=== PATIENT | female | born 1970 | race Caucasian/White ===

== ENCOUNTER 2019-12-24 15:28 | Emergency (ER) | payer OTHER, SELFPAY ==
--- NOTE | 2019-12-24 | ECG_ITS ---
Test Reason : CHEST PAIN Blood Pressure : / mmHG Vent. Rate : 060 BPM Atrial Rate : 060 BPM P-R Int : 138 ms QRS Dur : 078 ms QT Int : 428 ms P-R-T Axes : 044 -32 016 degrees QTc Int : 428 ms Normal sinus rhythm Left axis deviation Nonspecific T wave abnormality Anterolateral leads Abnormal ECG When compared with ECG of 22-FEB-2015 20:31, T wave inversion now evident in Anterolateral leads Referred By: Generic ED Physician Electronically Signed By:SHAUNNA POSADA MD
[2019-12-24 15:43] VITALS: BP 123/65; PULSE 58; RESP 20; TEMP 36.8; O2SAT 100; BMI 35.4
[2019-12-24 16:07] VITALS: BP 125/70; PULSE 60; RESP 20; TEMP 36.8; O2SAT 100
--- NOTE | 2019-12-24 16:25 | ED_ITS ---
HPI - Chest Pain General Chief Complaint: Chest Pain Stated Complaint: Chest Pain Time Seen by Provider: 12/24/19 15:59 Source: patient Mode of arrival: ambulatory Limitations: no limitations History of Present Illness HPI narrative: Patient comes in complaining of left-sided chest pain and left- sided upper back pain. 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 Patient states her chest her arm her back hurt with any slight movement. Patient denies diaphoresis, no shortness of breath. Related Data Previous Rx's Medication Instructions Recorded diazepam [Valium] 5 mg PO BID PRN #10 tab 12/24/19 ketorolac 10 mg PO TID PRN 5 Days tab 12/24/19 ketorolac 10 mg PO TID PRN 5 Days #10 tab 12/24/19 Allergies Allergy/AdvReac Type Severity Reaction Status Date / Time acetaminophen [From PERCOCET] Allergy Unknown N/V/ITCHING Unverified 10/27/19 15:25 doxycycline [DOXYCYCLINE] Allergy Unknown NAUSEA/VOMI Unverified 10/27/19 15:25 TING/ITCHIN G oxycodone [From PERCOCET] Allergy Unknown N/V/ITCHING Unverified 10/27/19 15:25 Doxycycline Hyclate AdvReac Unknown vomiting Uncoded 05/10/19 00:00 Review of Systems Review of Systems: Constitutional : No Weight loss, No Fever, No Chills, No Night Sweats, No Fatigue ENT/Mouth : No Hearing loss, No Ear Pain, No Nasal Congestion, No Sinus Pain, No Hoarseness, No sore throat, No Rhinorrhea, No Swallowing Difficulty Eyes: No Eye Pain, No Swelling, No Redness, No Foreign Body, No Discharge, No Vision Changes Cardiovascular : Left-sided chest Pain, No SOB, No Dyspnea on Exertion, No Orthopnea, No Edema, No Palpitations Respiratory : No Cough, No Sputum, No Wheezing, No Smoke Exposure, No Dyspnea Gastrointestinal : No Nausea, No Vomiting, No Diarrhea, No Constipation, No abdominal Pain, No Hematochezia, No Melena Genitourinary : no irregular bleeding, No Dysuria, No Urinary Frequency, No Hematuria, No Urinary Incontinence, No Urgency, No Flank Pain, No Urinary Flow Changes, No Hesitancy Musculoskeletal : No joint pain, patient complaining of left-sided chest pain, left arm pain radiating towards her neck, left scapular pain, No Joint Swelling Skin : No Skin Lesions, No rash Neuro : No Weakness, No Numbness, No Paresthesias, No Loss of Consciousness, No Dizziness, No Headache Psych : No Anxiety/Panic, No Depression, No SI/HI/AH/VH, No Social Issues, Heme/Lymph: No Bruising, No Bleeding,No Lymphadenopathy Endocrine : No Polyuria, No Polydipsia, No Temperature Intolerance [facility] Past Medical History Medical History Hypercholesteremia Social History Social History Alcohol intake: never Smoking Status: Current every day smoker Use of substances other than those prescribed or required for medical reasons: No Advance Directives: No Advance Directives Information Provided: No Physical Exam Vital Signs: Vital Signs: Last Vital Signs Temp 98.2 F 12/24/19 16:07 Pulse 60 12/24/19 16:07 Resp 20 12/24/19 16:07 BP 125/70 12/24/19 16:07 Pulse Ox 100 12/24/19 16:07 Body Mass Index 35.4 Appearance: Alert. Oriented X3. No acute distress. Eyes: Pupils equal, round and reactive to light. ENT: Pharynx normal. Neck: Normal inspection. Neck supple. No lymph nodes noted. No crepitus CVS: Normal heart rate and rhythm. Pulses normal. Normal S1 and S2. reproducible chest pain to palpation Respiratory: No respiratory distress. Breath sounds normal. No Wheezing. No rales Abdomen: Soft and nontender. No rigidity. No distention. good BS x4 Back: palpable muscle spasms on the upper left side and over the suprascapular area Skin: Skin warm and dry. Normal skin color. Normal skin turgor. Extremities: No lower extremity edema. No lower extremity edema. No Lacerations. No Rash, reproducible pain with left arm movement Neuro: Oriented X 3. No motor deficit. No sensory deficit. Moving all extermities. No slurred speech. Course Course Course Narrative: patient feeling better after the IM medication and Valium. patient's white blood cell count likely secondary to reactive leukocytosis. Chest x-ray within, at this time sepsis is not suspect. MDM - Chest Pain Lab Data Result diagrams: 12/24/19 16:49 12/24/19 16:49 Labs: Lab Results 12/24/19 12/24/19 12/24/19 Range/Units 16:49 16:49 16:49 WBC 15.3 H (4.8-10.8) X10*3/uL RBC 4.75 (4.20-5.50) X10*6/uL Hgb 14.9 (12.0-16.0) g/dl Hct 43.0 (37-47) % MCV 90.5 (80-98) fL MCH 31.4 (27.0-33.0) pg MCHC 34.7 (31.0-35.0) g/dl RDW 13.0 (11.0-16.0) % Plt Count 368 (160-400) X10*3/uL MPV 10.2 (9.4-12.3) fL Immature Gran % (Auto) 0.5 H (0.0-0.4) % Neut % (Auto) 70.9 (45-73) % Lymph % (Auto) 22.0 (20-40) % [place] % (Auto) 5.1 (2-11) % Eos % (Auto) 0.8 (0-4) % Baso % (Auto) 0.7 (0-2) % Lymph # (Auto) 3.4 (1.2-4.9) X10*3/uL [place] # (Auto) 0.8 (0.1-1.2) X10*3/uL Eos # (Auto) 0.1 (0.0-0.4) X10*3/uL Baso # (Auto) 0.1 (0.0-0.2) X10*3/uL Abs Immat Gran (auto) 0.07 H (0.00-0.03) X10*3/uL Absolute Neuts (auto) 10.9 H (2.0-8.3) X10*3/uL Absolute Nucleated RBC 0.000 (0.0-0.012) X10*3/uL Nucleated RBC % (auto) 0.0 (0.0-0.2) /100WBC Sodium 139 (135-145) mmol/L Potassium 3.8 (3.3-5.1) mmol/l Chloride 109 H (96-108) mmol/L Carbon Dioxide 19 L (22-29) mmol/L Anion Gap 15 (12-20) BUN 12 (9-16) mg/dL Creatinine 0.71 (0.5-1.4) mg/dL Estim Creat Clear Calc 104.7 Estimated GFR > 60 Random Glucose 86 (60-115) mg/dL Calcium 8.8 (8.4-10.2) mg/dL Troponin I High Sens < 3.5 (<3.5-17.0) ng/L Imaging Data Chest x-ray: Radiologist's impression: XR CHEST CLINICAL INFORMATION: Leukocytosis COMPARISON: Chest radiograph 02/22/2015 TECHNIQUE: Frontal view of the chest was obtained. FINDINGS: No significant abnormality is noted involving the heart, lungs, mediastinum, bony thorax or soft tissues. There is some minimal elevation of the right hemidiaphragm compared with the prior study. XR/XR chest 1V IMPRESSION: Unremarkable examination. ECG Data ECG #1: Attestation: I personally reviewed and interpreted this ECG as follows: ( sinus rhythm, heart rate 60, nonspecific T-wave inversions in leads V4 V5, QTC 428) Discharge Plan Discharge Clinical Impression: Atypical chest pain, Muscle strain of chest wall Patient Disposition: Home, Self-Care Instructions: Chest Pain (ED), Chest Wall Pain (ED) Additional Instructions: Please follow-up with your primary care physician tomorrow. If you have any worsening or new symptoms, please return to the emergency room or call 911 Prescriptions: New ketorolac 10 mg tablet 10 mg PO TID PRN (Reason: pain) 5 Days RF: 0 diazepam [Valium] 5 mg tablet 5 mg PO BID PRN (Reason: muscle spasm) Qty: 10 RF: 0 ketorolac 10 mg tablet 10 mg PO TID PRN (Reason: pain) 5 Days Qty: 10 RF: 0 Stand Alone Forms: Work/School Release
[2019-12-24] MEDS: diazePAM 5 MG TABLET PO (16:40)
[2019-12-24] MEDS: Ketorolac Tromethamine 60 MG/2 ML VIAL IM (16:41)
[2019-12-24 16:51] VITALS: PULSE 56
[2019-12-24 16:59] LABS: Basophils Absolute Auto 0.1 X10*3/uL (0.0-0.2); Basophils Percent Auto 0.7 % (0-2); Eosinophils Absolute Auto 0.1 X10*3/uL (0.0-0.4); Eosinophils Percent Auto 0.8 % (0-4); Hemoglobin 14.9 g/dl (12.0-16.0); Imm Gran Abs Auto 0.07 X10*3/uL (0.00-0.03); Imm Gran Pct Auto 0.5 % (0.0-0.4); Lymphocytes Absolute Auto 3.4 X10*3/uL (1.2-4.9); MANUAL DIFF FLAG NO; Mean Corpuscular HGB Conc 34.7 g/dl (31.0-35.0); Mean Corpuscular Hemoglobin 31.4 pg (27.0-33.0); Mean Corpuscular Volume 90.5 fL (80-98); Mean Platelet Volume 10.2 fL (9.4-12.3); Monocytes Absolute Auto 0.8 X10*3/uL (0.1-1.2); Monocytes Percent Auto 5.1 % (2-11); Neutrophils Absolute Auto 10.9 X10*3/uL (2.0-8.3); Neutrophils Percent Auto 70.9 % (45-73); Platelet Count 368 X10*3/uL (160-400); Red Blood Count 4.75 X10*6/uL (4.20-5.50); White Blood Count 15.3 X10*3/uL (4.8-10.8)
--- NOTE | 2019-12-24 17:16 | XR_ITS ---
EXAMINATION: XR CHEST CLINICAL INFORMATION: Leukocytosis COMPARISON: Chest radiograph 02/22/2015 TECHNIQUE: Frontal view of the chest was obtained. FINDINGS: No significant abnormality is noted involving the heart, lungs, mediastinum, bony thorax or soft tissues. There is some minimal elevation of the right hemidiaphragm compared with the prior study. XR/XR chest 1V IMPRESSION: Unremarkable examination.
[2019-12-24 17:20] LABS: Anion Gap 15 (12-20); Blood Urea Nitrogen 12 mg/dL (9-16); Calcium 8.8 mg/dL (8.4-10.2); Carbon Dioxide 19 mmol/L (22-29); Chloride 109 mmol/L (96-108); Creatinine Clr Calc Pharmacy 104.7; Estimated Glomerular Filt Rate > 60; Glucose Random 86 mg/dL (60-115); Potassium 3.8 mmol/l (3.3-5.1); Sodium 139 mmol/L (135-145)
[2019-12-24 17:27] LABS: Troponin-I High Sensitivity < 3.5 ng/L (<3.5-17.0)
[2019-12-24 18:00] VITALS: BP 121/71; PULSE 62; RESP 16; TEMP 36.6; O2SAT 98
== END 2019-12-24 18:19 | disposition home or self-care (01) ==
PROVIDERS: Emergency Provider Emergency Medicine; PCP Internal Medicine
DX: R07.89 Other chest pain (principal); D72.829 Elevated white blood cell count, unspecified; Z79.899 Other long term (current) drug therapy; F17.200 Nicotine dependence, unspecified, uncomplicated; Z71.6 Tobacco abuse counseling
CPT/HCPCS: 36415; 71045; 80048; 84484; 85025; 93005; 96372; 99284; J1885

== ENCOUNTER → 2020-01-04 13:07 | Outpatient (BNVA) | payer OTHER, SELFPAY | PROVIDERS: PCP Internal Medicine; Visit Provider Physician Assistant Medical | DX: S16.1XXA Strain of muscle, fascia and tendon at neck level, initial encounter (principal); S46.812A Strain of other muscles, fascia and tendons at shoulder and upper arm level, left arm, initial encounter; S46.912A Strain of unspecified muscle, fascia and tendon at shoulder and upper arm level, left arm, initial encounter; X50.0XXA Overexertion from strenuous movement or load, initial encounter; Y93.9 Activity, unspecified; Y92.129 Unspecified place in nursing home as the place of occurrence of the external cause; Y99.0 Civilian activity done for income or pay | CPT/HCPCS: 72040; 73030; 99203 ==

== ENCOUNTER → 2020-01-13 14:16 | Outpatient (BNVA) | payer OTHER, SELFPAY | PROVIDERS: PCP Internal Medicine; Visit Provider Physician Assistant Medical | DX: S16.1XXD Strain of muscle, fascia and tendon at neck level, subsequent encounter (principal); S46.812D Strain of other muscles, fascia and tendons at shoulder and upper arm level, left arm, subsequent encounter; X58.XXXD Exposure to other specified factors, subsequent encounter | CPT/HCPCS: 99213 ==

== ENCOUNTER → 2020-01-23 09:38 | Outpatient (BNVA) | payer OTHER, SELFPAY | PROVIDERS: PCP Internal Medicine; Visit Provider Physician Assistant | DX: S16.1XXD Strain of muscle, fascia and tendon at neck level, subsequent encounter (principal); X58.XXXD Exposure to other specified factors, subsequent encounter; R20.2 Paresthesia of skin | CPT/HCPCS: 99214 ==

== ENCOUNTER 2020-01-27 12:39 | Outpatient (REF) | payer OTHER, SELFPAY ==
--- NOTE | 2020-01-27 | MR_ITS ---
EXAMINATION: MR CERVICAL SPINE WITHOUT CONTRAST CLINICAL INFORMATION: Left hand weakness with shooting pain down the left thumb and cramping left thumb. Previously left shoulder pain a month ago. COMPARISON: Cervical spine 01/04/2020 TECHNIQUE: MRI of the cervical spine was obtained using routine sequences without contrast. FINDINGS: There is mild straightening of cervical lordosis from spasm. The vertebral heights and alignment are maintained normal. There is loss of C4-C5, C5-C6, C6-C7 disc levels. The C2-C3 disc level appears unremarkable. At C3-C4 disc level, there is minimal diffuse bulge without spinal canal stenosis. The neural foramina are patent. At C4-5 disc level, there is broad-based diffuse bulge indenting the ventral thecal sac and resulting in moderate AP canal stenosis and flattening of the cord. There is moderate left and mild right neural foraminal narrowing secondary to hypertrophic uncovertebral changes greater on the left. At C5-C6 disc level, there is mild diffuse bulge/osteophyte complex flattening the ventral thecal sac and resulting in mild AP canal stenosis. There is [id number] right and moderate left neural foraminal narrowing from uncovertebral hypertrophic changes. At C6-C7 disc level, there is a broad-based diffuse bulge/osteophyte complex flattening the ventral thecal sac and resulting in mild AP canal stenosis. There is moderate left and mild right neural foraminal narrowing from uncovertebral hypertrophic changes. At C7-T1 disc level, there is a diffuse bulge with a superimposed left paracentral large disc herniation extending into the proximal neural foramina. The disc herniation measures approximately 0.7 x 0.5 cm. There is moderate impingement on the exiting left T1 nerve root. The T1-T2 and T2-T3 disc levels are unremarkable. There is focal T2 signal change in right central cord posterior to C6 vertebra likely focal myelomalacia or contusion. The rest of the cord signal, craniovertebral junction and cervical-medullary junction appears normal. Modic type I endplate changes are seen at C6-C7 disc level. MR/MR cervical spine wo con IMPRESSION: Multilevel disc bulges from the C3-C4 through C4-C5 disc level with mild AP canal stenosis and bilateral neural foraminal narrowing slightly worse on the left from uncovertebral hypertrophic change at the C4-C5 disc level. Mild disc bulge/osteophyte complex C5-C6 and C6-C7 disc levels with mild AP canal stenosis. There is bilateral narrowing of neural foramina from uncovertebral hypertrophic changes slightly worse on the right at the C5-C6 disc level. Diffuse bulge with a superimposed left paracentral and lateral disc herniation at C7-T1 disc level severely compromising the proximal neural foramina and left lateral recess. There is also impingement of left T1 nerve root. Focal encephalomalacia right central cord posterior to C6 vertebra.
== END 2020-01-27 12:40 | disposition home or self-care (01) ==
LOC: HO.MRI 12:39
PROVIDERS: Visit Provider Internal Medicine
DX: R20.2 Paresthesia of skin (principal); R53.1 Weakness
CPT/HCPCS: 72141

== ENCOUNTER → 2020-02-02 13:16 | Outpatient (BNVA) | payer OTHER, SELFPAY | PROVIDERS: PCP Internal Medicine; Visit Provider Physician Assistant Medical | DX: M50.23 Other cervical disc displacement, cervicothoracic region (principal); M54.10 Radiculopathy, site unspecified; G93.89 Other specified disorders of brain | CPT/HCPCS: 99213 ==

== ENCOUNTER → 2020-02-15 10:36 | Outpatient (BNVA) | payer OTHER, SELFPAY | PROVIDERS: PCP Internal Medicine; Visit Provider Physician Assistant Medical | DX: M50.23 Other cervical disc displacement, cervicothoracic region (principal); M54.10 Radiculopathy, site unspecified | CPT/HCPCS: 99213 ==

== ENCOUNTER 2020-02-16 10:25 | Outpatient (REF) | payer OTHER, SELFPAY ==
[2020-02-16 11:16] LABS: Alanine Aminotransferase 44 U/L (0-31); Albumin Level 4.5 g/dL (3.5-5.0); Alkaline Phosphatase 87 U/L (39-117); Anion Gap 12 (12-20); Aspartate Amino Transferase 23 U/L (5-31); Bilirubin Total 0.5 mg/dL (0.0-1.0); Blood Urea Nitrogen 13 mg/dL (9-16); Calcium 8.9 mg/dL (8.4-10.2); Carbon Dioxide 28 mmol/L (22-29); Chloride 105 mmol/L (96-108); Cholesterol 307 mg/dL; Estimated Glomerular Filt Rate > 60; Glucose Fasting 117 mg/dL (60-99); HDL Cholesterol 30 mg/dL; LDL Cholesterol Calculated 218 mg/dl; Potassium 4.4 mmol/l (3.3-5.1); Sodium 141 mmol/L (135-145); Total Protein 7.5 g/dL (6.5-8.0); Triglycerides 299 mg/dL
== END 2020-02-16 10:26 | disposition home or self-care (01) ==
LOC: HO.LAB 10:25
PROVIDERS: PCP Internal Medicine; Visit Provider Internal Medicine
DX: E78.5 Hyperlipidemia, unspecified (principal)
CPT/HCPCS: 36415; 80053; 80061

== ENCOUNTER 2020-02-22 13:50 | Outpatient (REF) | payer OTHER, SELFPAY ==
--- NOTE | 2020-02-22 13:56 | MM_ITS ---
EXAMINATION: MM SCREENING DIGITAL BREAST TOMOSYNTHESIS, BILATERAL CLINICAL INFORMATION: Screening. Asymptomatic. The lifetime risk of breast cancer based on the Tyrer-Cuzick Model is 7%. COMPARISON: Mammography: 01/07/2014 (baseline) TECHNIQUE: Digital breast tomosynthesis is performed in both the craniocaudal and mediolateral oblique views along with computer-aided detection (CAD). Synthesized 2D images are generated from the tomosynthesis. FINDINGS: There are scattered areas of fibroglandular density (ACR BI-RADS breast composition Category b). There are no significant masses, abnormal calcifications, or other abnormalities. Parenchymal pattern is similar to baseline exam. Skin contours are smooth. MM/MM tomosynthesis screening BI IMPRESSION: No mammographic evidence of malignancy. ASSESSMENT: BI-RADS 1: Negative RECOMMENDATION: Routine annual mammography screening. This patient's information was entered into a reminder system with a target due date for their next mammogram.
== END 2020-02-22 13:51 | disposition home or self-care (01) ==
LOC: HO.MAMMO 13:50
PROVIDERS: PCP Internal Medicine; Visit Provider Internal Medicine
DX: Z12.31 Encounter for screening mammogram for malignant neoplasm of breast (principal)
CPT/HCPCS: 77063; 77067

== ENCOUNTER 2020-02-24 10:24 | Outpatient (REF) | payer OTHER, SELFPAY ==
[2020-02-29 15:02] LABS: HPV mRNA E6/E7 rflx Not Detected (Not Detected)
== END 2020-02-24 10:25 | disposition home or self-care (01) ==
LOC: HO.LAB 10:24
PROVIDERS: PCP Physician Assistant; Visit Provider Advanced Practice Midwife
DX: Z12.4 Encounter for screening for malignant neoplasm of cervix (principal); R23.2 Flushing; F17.200 Nicotine dependence, unspecified, uncomplicated
CPT/HCPCS: 36415; 87624; 88141; 88142

== ENCOUNTER → 2020-02-29 13:11 | Outpatient (BNVA) | payer OTHER, SELFPAY | PROVIDERS: PCP Physician Assistant; Visit Provider Physician Assistant Medical | DX: M50.13 Cervical disc disorder with radiculopathy, cervicothoracic region (principal) | CPT/HCPCS: 99213 ==

== ENCOUNTER → 2020-03-09 13:01 | Outpatient (BNVA) | payer OTHER, SELFPAY | PROVIDERS: PCP Physician Assistant; Visit Provider Physician Assistant Medical | DX: M50.13 Cervical disc disorder with radiculopathy, cervicothoracic region (principal) | CPT/HCPCS: 99213 ==

== ENCOUNTER → 2020-04-06 11:11 | Outpatient (BNVA) | payer OTHER, SELFPAY | PROVIDERS: PCP Physician Assistant; Visit Provider Physician Assistant Medical | DX: M50.13 Cervical disc disorder with radiculopathy, cervicothoracic region (principal) | CPT/HCPCS: 99213 ==

== ENCOUNTER 2020-04-10 16:00 | Outpatient (RCR) | payer OTHER, MEDICAID, SELFPAY ==
--- NOTE | 2020-02-08 17:20 | MHC.PT.RE ---
[facility] [place] Office [place] Office [place] Office [address] Rusty Garcia [address] [phone] F: [phone] F: [phone] F: [phone] F: [phone] Physical Therapy Re-evaluation Diagnosis: cervical radiculopathy Date of Surgery: N/A Date of Evaluation: 01/11/20 Treatments to Date: 8 Cancellations to Date: 1 No Shows to Date: 0 Subjective: pt reported she feels 85% better since initially injuring her neck/shoulder. pt reported she had increased soreness after last visit. Pain Score: 0 Pain Location: neck, L radicular to wrist level Objective Measures: NDI (initial eval): NDI (02/07): 1950 Cervical AROM: -Flexion: 25 -Extension: 30 -Sidebend: R 35, L 30 -Rotation: R 75, L 70 Shoulder AROM: -Flexion: 150 -Abduction: 140 -Extension: 55 -External rotation: suboccipital region -Internal rotation: T12 Cervical MRI (01/27/2020): IMPRESSION: Multilevel disc bulges from the C3-C4 through C4-C5 disc level with mild AP canal stenosis and bilateral neural foraminal narrowing slightly worse on the left from uncovertebral hypertrophic change at the C4-C5 disc level. Mild disc bulge/osteophyte complex C5-C6 and C6-C7 disc levels with mild AP canal stenosis. There is bilateral narrowing of neural foramina from uncovertebral hypertrophic changes slightly worse on the right at the C5-C6 disc level. Diffuse bulge with a superimposed left paracentral and lateral disc herniation at C7-T1 disc level severely compromising the proximal neural foramina and left lateral recess. There is also impingement of left T1 nerve root. Focal encephalomalacia right central cord posterior to C6 vertebra. Assessment: pt had follow-up w/ neurosurgeon who recommended discectomy. Educated pt using spinal model and her MRI report as to what a discectomy is using a spinal model. pt wishes to seek second opinion regarding surgical intervention as she is not sure she wishes to continue w/ surgery. pt reported no radicular symptoms w/ supine L sidebending indicating she is able to reduce the pressure on her cervical nerve root w/ this position. Updated HEP to include supine L cervical sidebending in supine to manage radicular symptoms. pt stated overall she feels 85% better since her initial injury. She does however continue to have pain/difficulty w/ reading d/t flexion, holding objects w/ L side, lifting w/ L UE, and sleeping. She finds if she holds anything heavier than a cup or her phone she tends to drop the object. She has improved in her ability to perform upper body ADLs including upper body dressing. Her cervical and shoulder ROM measurements have improved since the initial eval but are not yet WNL. 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 Short Term Goals: pt will be I w/ HEP to promote self-management of condition. - GOAL MET pt will improve R cervical rotation by 15 deg to promote ease in turning head while driving. - GOAL MET EST 02/07 pt will improve L shoulder functional ER by 5 levels to promote ease in washing her hair. Equity Research Analyst Goals: pt will report statistically significant improvement in self-reported outcome measure, NDI, to promote return to PLOF. - improved by 3+ point difference pt will perform patient transfer w/ <2/10 L neck and arm pain to promote return to work. -unable to transfer pt at this time Frequency and Duration: The patient will be seen 2x/wk for 5 wks Treatment Plan: Therapeutic Exercise Dynamic Therapeutic Activities Neuromuscular Re-ed Manual Therapies Joint Mobilization Taping Home Exercise Program Patient Education Electrical Stimulation Iontophoresis Mechanical Traction Hot or Cold Pack Reviewed/ Agreed with Student Documentation: Therapist: Electronically signed by: Lucy Cotton PT, DPT Please sign and return to therapist. Thank you for your referral.
--- NOTE | 2020-04-18 15:10 | MHC.PT.DC ---
[facility] [place] Office [place] Office [place] Office [address] Rusty Garcia 140 [facility] [phone] F: [phone] F: [phone] F: [phone] F: [phone] Physical Therapy Discharge Report Diagnosis: cervical radiculopathy Date of Surgery: N/A Date of Evaluation: 01/11/20 Date of Discharge: 04/18/20 Treatments to Date: 17 Cancellations to Date: 4 No Shows to Date: 2 Discharge Status: Patient Elected to Stop Discharge Summary: The patient was making steady gains regarding her pain severity, pain frequency, and ability to tolerate a strengthening program. She was lifting up to 30 pounds while in physical therapy. 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 She has had two neurosurgical consults and each surgeon told her they would not expect her to return to full duty without receiving some surgical intervention for her neck. At her last visit she informed us that she will be pursuing surgical management. She is being discharged at this time to a home exercise program to continue to build upper extremity strength and work on her postural alignment. Electronically signed by: Lucy Cotton PT, DPT Please sign and return to therapist. Thank you for your referral.
== END 2020-04-18 15:10 | disposition other institution (70) ==
LOC: HO.PT 16:00
PROVIDERS: PCP Internal Medicine; Visit Provider Physician Assistant
DX: M54.2 Cervicalgia (principal); M62.838 Other muscle spasm
CPT/HCPCS: 97012; 97014; 97110; 97140; 97161; 97164

== ENCOUNTER → 2020-06-25 09:05 | Outpatient (REF) | payer SELFPAY | LOC: HO.SL 09:05 | PROVIDERS: PCP Internal Medicine; Visit Provider Internal Medicine | DX: R40.0 Somnolence (principal) | CPT/HCPCS: 95806 ==

== ENCOUNTER 2020-07-12 10:00 | Outpatient (RCR) | payer OTHER, SELFPAY | END 2020-07-24 11:13 | disposition other institution (70) | LOC: HO.PT 10:00 | PROVIDERS: PCP Internal Medicine; Visit Provider Specialist | DX: M54.2 Cervicalgia (principal); Z91.81 History of falling; Z98.890 Other specified postprocedural states | CPT/HCPCS: 97110; 97161 ==

== ENCOUNTER → 2020-11-07 13:00 | Outpatient (BNVA) | payer OTHER, SELFPAY | PROVIDERS: Visit Provider Physician Assistant Medical | DX: Z02.79 Encounter for issue of other medical certificate (principal) | CPT/HCPCS: 99213 ==

== ENCOUNTER → 2020-11-12 09:40 | Outpatient (BNVA) | payer OTHER, SELFPAY | PROVIDERS: Visit Provider Physician Assistant Medical | DX: Z98.1 Arthrodesis status (principal) | CPT/HCPCS: 99213 ==

== ENCOUNTER → 2020-11-13 10:12 | Outpatient (BNVA) | payer OTHER, SELFPAY | PROVIDERS: Visit Provider Physician Assistant Medical | DX: Z98.1 Arthrodesis status (principal) | CPT/HCPCS: 99213 ==

== ENCOUNTER 2022-06-13 09:56 | Outpatient (REF) | payer OTHER, SELFPAY | END 2022-06-13 09:57 | disposition home or self-care (01) | LOC: HO.LNP 09:56 | PROVIDERS: PCP Internal Medicine; Visit Provider Advanced Practice Midwife | DX: Z30.432 Encounter for removal of intrauterine contraceptive device (principal); R23.2 Flushing | CPT/HCPCS: 58301 ==

== ENCOUNTER 2022-06-13 10:32 | Outpatient (REF) | payer OTHER, SELFPAY ==
[2022-06-14 14:19] LABS: BV Int Neg Control Negative (Negative); BV Int Pos Control Positive (Positive)
[2022-06-14 19:18] LABS: Follicle Stimulating Hormone 38.4 mIU/mL
== END 2022-06-13 10:33 | disposition home or self-care (01) ==
LOC: HO.LAB 10:32
PROVIDERS: PCP Internal Medicine; Visit Provider Advanced Practice Midwife
DX: R23.2 Flushing (principal); N89.8 Other specified noninflammatory disorders of vagina
CPT/HCPCS: 36415; 83001; 87480; 87510; 87660

== ENCOUNTER → 2022-06-25 07:36 | Outpatient (BNVA) | payer OTHER, SELFPAY | PROVIDERS: PCP Internal Medicine; Visit Provider Advanced Practice Midwife ==

== ENCOUNTER 2022-07-17 13:58 | Outpatient (REF) | payer OTHER, SELFPAY ==
[2022-07-18 10:27] LABS: CT PCR NOT DETECTED (Not Detect.); NG PCR NOT DETECTED (Not Detect.)
== END 2022-07-17 13:59 | disposition home or self-care (01) ==
LOC: HO.LNP 13:58
PROVIDERS: PCP Internal Medicine; Visit Provider Advanced Practice Midwife
DX: Z01.419 Encounter for gynecological examination (general) (routine) without abnormal findings (principal); Z20.2 Contact with and (suspected) exposure to infections with a predominantly sexual mode of transmission
CPT/HCPCS: 0353U

== ENCOUNTER 2022-07-22 15:53 | Outpatient (REF) | payer OTHER, SELFPAY ==
--- NOTE | ~2022-07-22 | MM_ITS ---
EXAMINATION: MM SCREENING DIGITAL BREAST TOMOSYNTHESIS, BILATERAL CLINICAL INFORMATION: Screening. Asymptomatic. The lifetime risk of breast cancer based on the Tyrer-Cuzick Model is 7%. COMPARISON: Mammography: 02/22/2020, 01/07/2014 (baseline) TECHNIQUE: Digital breast tomosynthesis is performed in both the craniocaudal and mediolateral oblique views along with computer-aided detection (CAD). Synthesized 2D images are generated from the tomosynthesis. FINDINGS: There are scattered areas of fibroglandular density (ACR BI-RADS breast composition Category b). Breast tissue composition borders on heterogeneously dense. Parenchymal pattern is similar to prior exams. There are no significant masses, abnormal calcifications, or other abnormalities. No developing density or architectural abnormality. The axilla and skin contours are unremarkable. MM/MM tomosynthesis screening BI IMPRESSION: No mammographic evidence of malignancy. ASSESSMENT: BI-RADS 1: Negative RECOMMENDATION: Routine annual mammography screening. This patient's information was entered into a reminder system with a target due date for their next mammogram.
== END 2022-07-22 15:54 | disposition home or self-care (01) ==
LOC: HO.MAMMO 15:53
PROVIDERS: PCP Internal Medicine; Visit Provider Advanced Practice Midwife
DX: Z12.31 Encounter for screening mammogram for malignant neoplasm of breast (principal)
CPT/HCPCS: 77063; 77067

== ENCOUNTER 2022-07-31 09:17 | Outpatient (REF) | payer OTHER, SELFPAY ==
[2022-07-31 10:13] LABS: MANUAL DIFF FLAG NO
[2022-07-31 11:05] LABS: Basophils Absolute Auto 0.1 X10*3/uL (0.0-0.2); Basophils Percent Auto 1.2 % (0-2); Eosinophils Absolute Auto 0.3 X10*3/uL (0.0-0.4); Eosinophils Percent Auto 2.1 % (0-4); Hematocrit 45.1 % (37.0-47.0); Hemoglobin 15.3 g/dl (12.0-16.0); Imm Gran Abs Auto 0.07 X10*3/uL (0.00-0.03); Imm Gran Pct Auto 0.6 % (0.0-0.4); Lymphocytes Absolute Auto 3.3 X10*3/uL (1.2-4.9); Lymphocytes Percent Auto 27.9 % (20-40); Mean Corpuscular HGB Conc 33.9 g/dl (31.0-35.0); Mean Corpuscular Hemoglobin 31.2 pg (27.0-33.0); Mean Corpuscular Volume 91.9 fL (80.0-98.0); Mean Platelet Volume 11.5 fL (9.4-12.3); Monocytes Absolute Auto 0.7 X10*3/uL (0.1-1.2); Monocytes Percent Auto 5.9 % (2-11); Neutrophils Absolute Auto 7.4 x10*3/uL (2.0-8.3); Neutrophils Percent Auto 62.3 % (45-73); Platelet Count 264 X10*3/uL (160-400); Red Blood Count 4.91 X10*6/uL (4.20-5.50); Red Cell Distribution Width 13.4 % (11.0-16.0); White Blood Count 11.9 X10*3/uL (4.8-10.8)
[2022-07-31 11:13] LABS: Estimated Average Glucose 108 mg/dL; Hemoglobin A1c % 5.4 %
[2022-07-31 12:36] LABS: TSH reflex Free T4 1.22 uIU/mL (0.32-4.0)
[2022-07-31 12:42] LABS: Anion Gap 9 (12-20); Folate 12.5 ng/mL (> or = 4.0); Vitamin B12 639 pg/mL (200-900)
[2022-07-31 12:47] LABS: Alanine Aminotransferase 42 U/L (0-31); Albumin Level 4.4 g/dL (3.5-5.0); Alkaline Phosphatase 89 U/L (39-117); Aspartate Amino Transferase 22 U/L (5-31); Bilirubin Total 0.5 mg/dL (0.0-1.0); Blood Urea Nitrogen 12 mg/dL (9-16); Calcium 9.1 mg/dL (8.4-10.2); Carbon Dioxide 26 mmol/L (22-29); Chloride 110 mmol/L (96-108); Cholesterol 312 mg/dL; Estimated Glomerular Filt Rate > 60; Glucose Random 100 mg/dL (60-115); HDL Cholesterol 31 mg/dL; Potassium 4.1 mmol/L (3.3-5.1); Sodium 141 mmol/L (135-145); Total Protein 7.8 g/dL (6.5-8.0); Triglycerides 470 mg/dL
== END 2022-07-31 09:18 | disposition home or self-care (01) ==
LOC: HO.LAB 09:17
PROVIDERS: Absent Provider Nurse Practitioner Family; PCP Internal Medicine; Visit Provider Advanced Practice Midwife
DX: E78.00 Pure hypercholesterolemia, unspecified (principal); E66.9 Obesity, unspecified; Z30.430 Encounter for insertion of intrauterine contraceptive device; Z68.36 Body mass index [BMI] 36.0-36.9, adult; Z32.02 Encounter for pregnancy test, result negative; Z13.1 Encounter for screening for diabetes mellitus
CPT/HCPCS: 36415; 58300; 80053; 80061; 81025; 82306; 82607; 82746; 83036; 84443; 85025; J7298

== ENCOUNTER 2022-09-11 13:21 | Outpatient (AMB) | payer OTHER, SELFPAY ==
--- NOTE | 2022-09-11 13:22 | A.OFFVIS_ITS ---
Intake Vital Signs 09/11/22 13:23 Height 5 ft 3 in Weight 206 lb BMI 36.5 BP 100/62 Intake Visit Reasons: 4-6 weeks follow up Intake Note: The patient agreed to use of a certified medical assistant during this encounter. Scribed for IAN Saul by Sue Lopez certified medical assistant, on 09/11/2022 at 1:49 pm EST. Preparation Plant Repairer: Preparation Plant Repairer Present (Rose) Allergies doxycycline [DOXYCYCLINE] Allergy (Intermediate, Verified 09/11/22 14:18) NAUSEA/VOMITING/ITCHING Is last menstrual period known: Yes Last menstrual period: 09/01/22 Post menopausal: No Patient : No HPI HPI Comments History of Present Illness Details She is presenting for IUD check. She had the Mirena IUD placed on 07/31/22. She has no concerns. She denies pain, abnormal discharge, or other concerns. [facility] Medical History Daytime sleepiness Depression Dyslipidemia Hypercholesteremia Morbid obesity Shoulder pain, left Surgical History History of section History of neck surgery Family History Father EtOH dependence Cirrhosis Hypertension Substance use disorder Mother CKD (chronic kidney disease) Diabetes Hypertension Son In good health Brother In good health Social History Housing: House Alcohol intake: current Alcohol intake frequency: holidays/special occasions only Alcohol type: beer, wine and hard liquor Patient Tobacco Use Status: Current everyday Tobacco user Tobacco use type: Cigarette Cigarettes Per Day: 10 e-Cigarette/Vaping Use: Never Used Second Hand Smoke Exposure: No service: No Current occupational status: employed Current occupational exposures/hazards: No Sexual orientation: Straight/Heterosexual Gender identity: Female Cognitive needs: No Hearing needs: No Vision needs: No Female Reproductive History Menstrual Age of Menarche: 16 Date of last menstrual period: 09/01/22 control method: progestin IUCD (Mirena 07/31/22. IUD strings visible 09/11/22) Physical Exam Vital Signs: Last Vital Signs BP 100/62 09/11/22 13:23 BMI result Body Mass Index 36.5 Const General: cooperative, healthy appearing, comfortable, no acute distress, well developed, alert and awake Other: General: Yes bladder normal to palpation External Female Exam: normal external appearance and normal appearance of the urethra Speculum Exam - Vagina: normal appearance of the vagina, normal palpation and normal vaginal discharge Speculum Exam - Cervix: normal appearance of the cervix, normal palpation and Other cervical findings present (IUD strings visible, no tip palpable) Bimanual exam- vagina & uterus: normal bimanual exam, normal palpation, bladder normal to palpation and normal palpation Bimanual Exam- Adnexa, other: normal adnexae and no masses Assessment & Plan Assessment & Plan (1) IUD surveillance: Code(s): Z30.431 - Encounter for routine checking of intrauterine contraceptive device Plan: Discussed: Bleeding tends to taper down, some women do not bleed at all for months, some have unscheduled and random bleeding. Monitor bleeding and cramps for the next 1-2 months and contact office with any concerns or questions. All of her questions and concerns were addressed to the best of my ability and shared decision making. RTO for AG or PRN. Quality Reporting (2019) Adult ([facility] ) Smoking risk assessment performed?: Yes Patient Tobacco Use Status: Current everyday Tobacco user Coding Level of Care Code Est Pt Level 2 (60282) Diagnoses IUD surveillance Z30.431
[2022-09-11 13:23] VITALS: BP 100/62; BMI 36.5
== END 2022-09-11 14:16 | disposition home or self-care (01) ==
LOC: HO.HWS 13:21
PROVIDERS: PCP Internal Medicine; Visit Provider Advanced Practice Midwife
DX: Z30.431 Encounter for routine checking of intrauterine contraceptive device (principal)
CPT/HCPCS: 99212

== ENCOUNTER 2022-09-11 13:21 | Outpatient (REF) | payer OTHER, SELFPAY ==
[2022-09-11 14:08] LABS: MANUAL DIFF FLAG NO
[2022-09-11 15:08] LABS: Basophils Absolute Auto 0.1 X10*3/uL (0.0-0.2); Basophils Percent Auto 0.9 % (0-2); Eosinophils Absolute Auto 0.2 X10*3/uL (0.0-0.4); Eosinophils Percent Auto 1.7 % (0-4); Hematocrit 48.1 % (37.0-47.0); Hemoglobin 15.8 g/dl (12.0-16.0); Imm Gran Abs Auto 0.08 X10*3/uL (0.00-0.03); Imm Gran Pct Auto 0.6 % (0.0-0.4); Lymphocytes Absolute Auto 4.5 X10*3/uL (1.2-4.9); Lymphocytes Percent Auto 33.1 % (20-40); Mean Corpuscular HGB Conc 32.8 g/dl (31.0-35.0); Mean Corpuscular Volume 94.5 fL (80.0-98.0); Monocytes Absolute Auto 0.9 X10*3/uL (0.1-1.2); Monocytes Percent Auto 6.6 % (2-11); Neutrophils Absolute Auto 7.8 x10*3/uL (2.0-8.3); Neutrophils Percent Auto 57.1 % (45-73); Platelet Count 364 X10*3/uL (160-400); Red Blood Count 5.09 X10*6/uL (4.20-5.50); Red Cell Distribution Width 13.1 % (11.0-16.0); White Blood Count 13.7 X10*3/uL (4.8-10.8)
[2022-09-11 15:44] LABS: Alanine Aminotransferase 36 U/L (0-31); Albumin Level 4.5 g/dL (3.5-5.0); Alkaline Phosphatase 79 U/L (39-117); Aspartate Amino Transferase 21 U/L (5-31); Bilirubin Direct 0.1 mg/dL (0.0-0.5); Bilirubin Total 0.4 mg/dL (0.0-1.0); Total Protein 7.7 g/dL (6.5-8.0)
[2022-09-11 16:01] LABS: Vitamin D 25-OH Total 26.2 ng/mL (>30)
== END 2022-09-11 13:22 | disposition home or self-care (01) ==
LOC: HO.LAB 13:21
PROVIDERS: PCP Internal Medicine; Visit Provider Nurse Practitioner Family
DX: E55.9 Vitamin D deficiency, unspecified (principal); D72.829 Elevated white blood cell count, unspecified; R74.01 Elevation of levels of liver transaminase levels; K21.9 Gastro-esophageal reflux disease without esophagitis
CPT/HCPCS: 36415; 80076; 82306; 85025

== ENCOUNTER → 2022-09-11 14:13 | Outpatient (AMB) | payer OTHER, SELFPAY ==
[2022-09-11 14:17] VITALS: BMI 36.2
--- NOTE | 2022-09-11 14:17 | MHC.OFFVIS ---
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 Accompanied by: Self / Same As Patient Allergies doxycycline [DOXYCYCLINE] Allergy (Intermediate, Verified 09/11/22 14:18) NAUSEA/VOMITING/ITCHING Medication List - Last Reconciled 09/11/22 by Janine Onofre PA-C cholecalciferol (vitamin D3) 50 mcg PO DAILY levonorgestrel (Mirena) intrauterine HPI HPI Comments History of Present Illness Details A 51 y/o female referred for index screening-colonoscopy Hed constipation- with zoloft- so discontinued-she will notify PCP She has heartburn for several years- she had been taking OTC- No family history GI cancers Father had cirrhosis, alcohol use No nausea, vomiting, hematemesis, hematochezia fever chills PFSH Medical History Daytime sleepiness Depression Dyslipidemia Hypercholesteremia Morbid obesity Shoulder pain, left Surgical History History of section History of neck surgery Family History Father EtOH dependence Cirrhosis Hypertension Substance use disorder Mother CKD (chronic kidney disease) Diabetes Hypertension Son In good health Brother In good health Social History Housing: House Alcohol intake: current Alcohol intake frequency: holidays/special occasions only Alcohol type: beer, wine and hard liquor Patient Tobacco Use Status: Current everyday Tobacco user Tobacco use type: Cigarette Cigarettes Per Day: 10 e-Cigarette/Vaping Use: Never Used Second Hand Smoke Exposure: No service: No Current occupational status: employed Current occupational exposures/hazards: No Sexual orientation: Straight/Heterosexual Gender identity: Female Cognitive needs: No Hearing needs: No Vision needs: No Female Reproductive History Menstrual Age of Menarche: 16 Review of Systems Const All systems reviewed & are unremarkable except as noted in HPI and below Card Denies chest pain and Denies dyspnea Resp Denies dyspnea GI Denies abdominal pain, Denies change in bowel habits and Denies heartburn Physical Exam Vital Signs: BMI result Body Mass Index 36.2 Const General: cooperative, healthy appearing, comfortable and no acute distress Orientation/consciousness: patient oriented x3 Limitations: no limitations Resp Effort & Inspection: normal respiratory effort and able to speak in complete sentences Auscultation: clear to auscultation bilaterally and no wheezes Cardio Rate: regular rate Rhythm: regular rhythm Heart sounds: S1 normal heart sound present and S2 normal heart sound present GI Palpation (GI): Soft to palpation and nontender Skin General skin exam: no rashes or lesions noted Neuro General: patient oriented x3 Extrem General: Yes full ROM Psych Appearance: grossly normal and well kempt Mental Status: mental status grossly normal Speech and movement: Normal speech and movement present Affect: normal affect Attitude: cooperative Thought process: Normal thought process present Thought content: Normal thought content present Insight: Good insight present (Psych) Judgement: Good judgement present (Psych) Results Reviewed Results Reviewed: Reviewd labs as far back as 2019- very elevated lipid panel Assessment & Plan Assessment & Plan (1) Encounter for screening colonoscopy: Code(s): Z12.11 - Encounter for screening for malignant neoplasm of colon (2) Acid reflux: Comment: Reflux precautions reviewed PPI, q.d. consistent EGD- r/o pud, nonulcer dyspepsia, esophagitis other endoscopic findings to account for her symptoms Code(s): K21.9 - Gastro-esophageal reflux disease without esophagitis Plan REENFORCED importance- of F/U with PCP for cholesterol / triglycerides- EGD/ colon-MG Discuss indications/procedure, rare risks Orders: Orders Colonoscopy - GI Use Only 09/11/22 Z12.11 - Encounter for screening for malignant neoplasm of colon EDG - GI Use Only 09/11/22 K21.9 - Gastro-esophageal reflux disease without esophagitis Medications: New bisacodyl (Dulcolax (bisacodyl)) Take 4 tablets by mouth at 12:00pm the day before your procedure. 20 mg (4 x 5 mg) PO ONCE 1 day 4 tabs 0RF colonoscopy prep Z12.11 - Encounter for screening for malignant neoplasm of colon polyethylene glycol 3350 (Miralax) Take as directed by mouth the day before your procedure. 238 grams PO ONCE 1 day PRN 238 grams 0RF laxative effect pantoprazole 40 mg (2 x 20 mg) PO ONCE 30 days 60 tabs 6RF Patient Instructions: 51-year-old female referred for index screening colonoscopy-persistent acid reflux Reviewed blood work elevated cholesterol/triglycerides she will follow back with her PCP Reflux precautions reviewed PPI, q.d. consistent EGD/ colonoscopy- Needs escorted due to anesthesia Encouraged to call questions or concerns Quality Reporting (2019) Adult ([facility] 138/04/02/68) Smoking risk assessment performed?: Yes Patient Tobacco Use Status: Current everyday Tobacco user Coding Level of Care Code New Pt Level 3 (14432) Diagnoses Encounter for screening colonoscopy Z12.11 Acid reflux K21.9 Time Spent (min) 30
== END ==
PROVIDERS: PCP Internal Medicine; Visit Provider Physician Assistant
DX: Z01.818 Encounter for other preprocedural examination (principal); Z12.11 Encounter for screening for malignant neoplasm of colon; K21.9 Gastro-esophageal reflux disease without esophagitis
CPT/HCPCS: 99203

== ENCOUNTER 2022-09-17 17:14 | Outpatient (AMB) | payer OTHER, SELFPAY ==
[2022-09-17 17:24] VITALS: BP 130/72; PULSE 82; O2SAT 98; BMI 36.7
--- NOTE | 2022-09-17 17:24 | MHC.PC.OV ---
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 Accompanied by: Self / Same As Patient Allergies doxycycline [DOXYCYCLINE] Allergy (Intermediate, Verified 09/17/22 17:39) NAUSEA/VOMITING/ITCHING sertraline Adverse Reaction (Intermediate, Verified 09/17/22 17:39) cramps Medication List - Last Reconciled 09/17/22 by Laila Aponte MD bisacodyl (Dulcolax (bisacodyl)) 20 mg (4 x 5 mg) PO ONCE 1 day cholecalciferol (vitamin D3) 50 mcg PO DAILY levonorgestrel (Mirena) intrauterine pantoprazole 40 mg (2 x 20 mg) PO ONCE 30 days polyethylene glycol 3350 (Miralax) 238 grams PO ONCE PRN 1 day Tobacco use date assessed: 07/08/22 Dental Screening Dental Screen Date: 09/17/22 Did you have a dental visit in the last 12 months?: Yes Did you have a dental problem in the last 6 months where you did not have access to dental care?: No Was dental information given to patient?: Patient has dentist HPI HPI Comments History of Present Illness Details This is a 51-year-old female with acid reflux, anxiety, mixed hyperlipidemia and leukocytosis that comes today complaining of more anxiety with sertraline. She would like to go back to citalopram. She was in citalopram 40 mg and I will start her on 10 mg. Acid reflux stable with pantoprazole. Cholesterol and triglycerides are elevated and her [place] risk score of having a heart attack or stroke in the next 10 years is 13.8%. I will start her on statins and fibrates. She has chronic leukocytosis for about 3 years. Denies any fever or night sweats. Has a brother with mantle cell lymphoma. Will be referred to Hematology-Oncology. Had a urinalysis today that was negative for infection. COUNT INCLUDES THE [facility] Medical History Daytime sleepiness Depression Dyslipidemia Hypercholesteremia Morbid obesity Shoulder pain, left Surgical History History of section History of neck surgery Family History (Updated 09/17/22 @ 18:45 by Laila Aponte MD) Father EtOH dependence Cirrhosis Hypertension Substance use disorder Mother CKD (chronic kidney disease) Diabetes Hypertension Son In good health Brother Mantle cell lymphoma, Onset Age: 54 Social History Housing: House Alcohol intake: current Alcohol intake frequency: holidays/special occasions only Alcohol type: beer, wine and hard liquor Patient Tobacco Use Status: Current everyday Tobacco user Tobacco use type: Cigarette Cigarettes Per Day: 10 e-Cigarette/Vaping Use: Never Used Second Hand Smoke Exposure: No service: No Current occupational status: employed Current occupational exposures/hazards: No Sexual orientation: Straight/Heterosexual Gender identity: Female Cognitive needs: No Hearing needs: No Vision needs: No Female Reproductive History Menstrual Age of Menarche: 16 Questionnaire PHQ-9 Over the last 2 weeks, how often have you been bothered by any of the following problems? 1. Little interest or pleasure in doing things: more than half the days 2. Feeling down, depressed, or hopeless: more than half the days 3. Trouble falling or staying asleep, or sleeping too much: not at all 4. Feeling tired or having little energy: nearly every day 5. Poor appetite or overeating: more than half the days 6. Feeling bad about yourself - or that you are a failure or have let yourself or your family down: several days 7. Trouble concentrating on things, such as reading the newspaper or watching television: several days 8. Moving or speaking so slowly that other people could have noticed. Or the opposite - being so fidgety or restless that you have been moving around a lot more than usual: not at all 9. Thoughts that you would be better off or of hurting yourself in some way: not at all Total score: 11 Depression Screening Interpretation: Positive Depression Screening Follow-up: Existing condition and In treatment 55333 - PHQ-9 Billing: Yes Source: Developed by Drs. Jacky Melgoza, Rachel Guardado, Gabriel Rossi and colleagues, with an educational margarita from [employer]. Thrive Questionnaire Date Thrive assessed: 07/08/22 AUDIT C Alcohol Use Questionnaire (AUDIT-C) 1. How often do you have a drink containing alcohol?: Monthly or less 2. How many drinks containing alcohol do you have on a typical day when you are drinking?: 1 or 2 3. How often do you have six or more drinks on one occasion?: Never Total Score: 1 Score Reviewed/Action Taken: No KAYLA-7 AMB Questionnaire KAYLA-7 Date KAYLA - 7 assessed: 07/08/22 Source: Developed by Drs. Jacky Melgoza, Rachel Guardado, Gabriel Rossi and colleagues, with an educational margarita from [employer]. Review of Systems Const All systems reviewed & are unremarkable except as noted in HPI and below Eyes Reports no additional complaints, Denies change in vision and Denies other visual disturbances Card Denies chest pain at rest, Denies chest pain with activity, Denies edema, Denies irregular heart rhythm, Denies claudication, Denies dyspnea, Denies dyspnea on exertion, Denies orthopnea, Denies paroxysmal nocturnal dyspnea and Denies slow heart rate Resp Denies cough, Denies dyspnea and Denies dyspnea on exertion GI Denies abdominal pain, Denies change in bowel habits, Denies excessive flatus, Denies nausea and Denies vomiting Denies urinary incontinence, Denies urinary hesitancy and Denies urinary urgency Musc Denies abnormal gait, Denies atrophy, Denies deformity and Denies limited range of motion Skin/Breast Denies bleeding lesions, Denies changing lesions and Denies rash Neuro Denies abnormal gait and Denies lack of coordination Psych Reports anxiety Physical exam (Primary Care) Vital Signs: Last Vital Signs Pulse 82 09/17/22 17:24 BP 130/72 09/17/22 17:24 Pulse Ox 98 09/17/22 17:24 Oxygen Delivery Method Room Air 09/17/22 17:24 BMI result Body Mass Index 36.7 Tobacco/Smoking Status: Tobacco use Status Tobacco use date assessed 07/08/22 09/17/22 17:30 Patient Tobacco Use Status Current everyday Tobacco 09/17/22 17:30 Tobacco use type Cigarette 09/17/22 17:30 e-Cigarette/Vaping Use Never Used 09/17/22 17:30 PHQ-9: PHQ-9 Score PHQ-9: Total score 11 09/17/22 17:56 Depression Screening Interpretation: Positive Depression Screening Follow-up: Existing condition and In treatment Thrive Assessment: Date of Thrive Assessment Date Thrive assessed 07/08/22 09/17/22 17:30 Eyes General: appearance normal, both eyes and all related structures Eyelids: Yes eyelids normal Conjunctivae: conjunctivae normal Neck Neck: Yes normal visual inspection and Yes supple Resp Effort & Inspection: normal respiratory effort Auscultation: clear to auscultation bilaterally Cardio Jugular venous distension: no JVD Rate: regular rate Rhythm: regular rhythm Heart sounds: S1 normal heart sound present and S2 normal heart sound present Extrem General: Yes full ROM Results AMB Urinalysis, Automated UA Leukoctes 0 Pankaj/uL Last Edit by Flaca Rubin CMA on 09/17/22 17:57 UA Nitrite Negative Last Edit by Flaca Rubin CMA on 09/17/22 17:57 UA Urobilinogen 0.2 mg/dL Last Edit by Flaca Rubin CMA on 09/17/22 17:57 UA Protein 0 mg/dL Last Edit by Flaca Rubin CMA on 09/17/22 17:57 UA pH 6.0 Last Edit by Flaca Rubin CMA on 09/17/22 17:57 UA Blood 0 Omega/uL Last Edit by Flaca Rubin CMA on 09/17/22 17:57 UA Specific [place] 1.030 Last Edit by Flaca Rubin CMA on 09/17/22 17:57 UA Ketone Negative Last Edit by Flaca Rubin CMA on 09/17/22 17:57 UA Bilirubin 0 mg/dL Last Edit by Flaca Rubin HOROLOGIST APPRENTICE on 09/17/22 17:57 UA Glucose 0 mg/dL Last Edit by Flaca Rubin CMA on 09/17/22 17:57 Results Reviewed Results Reviewed: Laboratory Last Values Urine pH (Auto) 6.0 09/17/22 17:56 Specific [place] (Auto) 1.030 09/17/22 17:56 Urine Protein (Auto) 0 mg/dL 09/17/22 17:56 Glucose (UA)(Auto) 0 mg/dL 09/17/22 17:56 Urine Ketones (Auto) Negative 09/17/22 17:56 Urine Blood (Auto) 0 Omega/uL 09/17/22 17:56 Urine Nitrite (Auto) Negative 09/17/22 17:56 Urine Bilirubin (Auto) 0 mg/dL 09/17/22 17:56 Urine Urobilinogen (Auto) 0.2 mg/dL 09/17/22 17:56 Leukocyte Esterase (Auto) 0 Pankaj/uL 09/17/22 17:56 Assessment and Plan Assessment & Plan (1) KAYLA (generalized anxiety disorder): Code(s): F41.1 - Generalized anxiety disorder Plan: Restart citalopram. (2) Mixed hyperlipidemia: Code(s): E78.2 - Mixed hyperlipidemia Plan: Start statins and fibrates. (3) Elevated white blood cell count: Code(s): D72.829 - Elevated white blood cell count, unspecified Plan: Referred to Hematology-Oncology. (4) Acid reflux: Comment: Reflux precautions reviewed PPI, q.d. consistent EGD- r/o pud, nonulcer dyspepsia, esophagitis other endoscopic findings to account for her symptoms Code(s): K21.9 - Gastro-esophageal reflux disease without esophagitis Plan: Continue pantoprazole. Orders: Orders Lipid Panel 6 Months E78.5 - Hyperlipidemia, unspecified Comprehensive [place]. Panel Fast 6 Months E78.5 - Hyperlipidemia, unspecified RT home sleep study 07/08/22 R40.0 - Somnolence AMB Urinalysis Automated Today Z13.9 - Encounter for screening, unspecified Referrals Hematology & Oncology Referral D72.829 - Elevated white blood cell count, unspecified Medications: New citalopram 10 mg PO DAILY 30 days 30 tabs 0RF F41.1 - Generalized anxiety disorder atorvastatin 20 mg PO BEDTIME 90 days 90 tabs 1RF fenofibrate 54 mg PO DAILY 90 days 90 tabs 1RF E78.2 - Mixed hyperlipidemia Coding Level of Care Code Est Pt Level 4 (59852) Diagnoses KAYLA (generalized anxiety disorder) F41.1 Mixed hyperlipidemia E78.2 Elevated white blood cell count D72.829 Acid reflux K21.9 Time Spent (min) 23
== END 2022-09-17 18:02 | disposition home or self-care (01) ==
PROVIDERS: PCP Internal Medicine; Visit Provider Internal Medicine
DX: F41.1 Generalized anxiety disorder (principal); E78.2 Mixed hyperlipidemia; D72.829 Elevated white blood cell count, unspecified; K21.9 Gastro-esophageal reflux disease without esophagitis
CPT/HCPCS: 81003; 99214

== ENCOUNTER → 2022-10-03 11:21 | Outpatient (BNV) | payer OTHER, SELFPAY | PROVIDERS: PCP Internal Medicine; Visit Provider Internal Medicine | DX: D72.829 Elevated white blood cell count, unspecified (principal) | CPT/HCPCS: 99204; 99213 ==

== ENCOUNTER 2023-03-19 16:30 | Outpatient (AMB) | payer OTHER, SELFPAY ==
--- NOTE | 2023-03-19 16:42 | MHC.PC.OV ---
Vital Signs 03/19/23 16:43 Height 5 ft 3 in Weight 210 lb BMI 37.2 BP 120/72 Blood Pressure Location Lt brachial Position Sitting Intake Visit Reasons: lipids Intake Note: Patient here for a follow up Lipids Narcotics Agent Required: No Accompanied by: Self / Same As Patient Allergies doxycycline [DOXYCYCLINE] Allergy (Intermediate, Verified 03/19/23 16:51) NAUSEA/VOMITING/ITCHING sertraline Adverse Reaction (Intermediate, Verified 03/19/23 16:51) Constipation Medication List - Last Reconciled 03/19/23 by Laila Aponte MD atorvastatin 20 mg PO BEDTIME 90 days cholecalciferol (vitamin D3) (Vitamin D3) 50 mcg PO DAILY citalopram 10 mg PO DAILY 30 days fenofibrate 54 mg PO DAILY 90 days levonorgestrel (Mirena) 52 mcg intrauterine USEASDIRECTD pantoprazole 40 mg (2 x 20 mg) PO DAILY Tobacco use date assessed: 03/19/23 Dental Screening Dental Screen Date: 03/19/23 Did you have a dental visit in the last 12 months?: Yes Did you have a dental problem in the last 6 months where you did not have access to dental care?: No Was dental information given to patient?: Patient has dentist HPI HPI Comments History of Present Illness Details This is a 52-year-old female with mild major depression, generalized anxiety disorder, mixed hyperlipidemia and mild obstructive sleep apnea that comes today for follow-up on her conditions. Depression and anxiety stable with citalopram. Lipid panel will be order and she is compliant with her medications. She does severely dozed off while watching TV, sitting and reading, laying down in the afternoon after lunch and as a passenger in a car with an [place]ile score Scale of 12. She had a sleep study done 2020 showing mild obstructive sleep apnea but says that symptoms has worsened. Will order home sleep study again. [facility] Medical History (Updated 03/21/23 @ 11:17 by Lalia Aponte MD) Depression Morbid obesity Daytime sleepiness Dyslipidemia Shoulder pain, left Hypercholesteremia Surgical History History of neck surgery History of section Family History Father EtOH dependence Cirrhosis Hypertension Substance use disorder Mother CKD (chronic kidney disease) Diabetes Hypertension Son In good health Brother Mantle cell lymphoma, Onset Age: 54 Social History Household Members: Significant Other Housing: House Alcohol intake: current Alcohol intake frequency: holidays/special occasions only Alcohol type: beer, wine and hard liquor Patient Tobacco Use Status: Current everyday Tobacco user Tobacco use type: Cigarette Cigarettes Per Day: 10 e-Cigarette/Vaping Use: Never Used Second Hand Smoke Exposure: No service: No Current occupational status: employed Current occupational exposures/hazards: No Sexual orientation: Straight/Heterosexual Gender identity: Female Cognitive needs: No Hearing needs: No Vision needs: No Female Reproductive History Menstrual Age of Menarche: 16 Questionnaire PHQ-9 Over the last 2 weeks, how often have you been bothered by any of the following problems? 1. Little interest or pleasure in doing things: not at all 2. Feeling down, depressed, or hopeless: not at all 3. Trouble falling or staying asleep, or sleeping too much: not at all 4. Feeling tired or having little energy: not at all 5. Poor appetite or overeating: not at all 6. Feeling bad about yourself - or that you are a failure or have let yourself or your family down: not at all 7. Trouble concentrating on things, such as reading the newspaper or watching television: not at all 8. Moving or speaking so slowly that other people could have noticed. Or the opposite - being so fidgety or restless that you have been moving around a lot more than usual: not at all 9. Thoughts that you would be better off or of hurting yourself in some way: not at all Total score: 0 Depression Screening Interpretation: Negative Depression Screening Done: Yes 73801 - PHQ-9 Billing: Yes Source: Developed by Drs. Jacky Melgoza, Rachel Guardado, Gabriel Rossi and colleagues, with an educational margarita from [employer] Thrive Questionnaire Date Thrive assessed: 03/19/23 I am a: Patient What is your living situation today?: I have a steady place to live Within the past 12 months, did the food you bought not last and you didn't have the money to get more?: Never true Within the past 12 months, did you worry whether your food would run out before you got money to buy more?: Never true Do you have trouble paying for medicines?: No Do you have trouble getting transportation to medical appointments?: No Do you have trouble paying your heating and electricity bill?: No Do you have trouble taking care of your child, family member or friend?: No Do you have trouble with day-to-day activities such as bathing, preparing meals, shopping, managing finances, etc.?: No Are you currently unemployed and looking for a job?: No Are you interested in more education?: No Please select the resources that you would like help with: None Currently or been in a relationship where the following occur: no concerns reported THRIVE Score: 0 AUDIT C Alcohol Use Questionnaire (AUDIT-C) 1. How often do you have a drink containing alcohol?: Monthly or less 2. How many drinks containing alcohol do you have on a typical day when you are drinking?: 1 or 2 3. How often do you have six or more drinks on one occasion?: Never Total Score: 1 KAYLA-7 AMB Questionnaire KAYLA-7 Date KAYLA - 7 assessed: 03/19/23 Feeling nervous, anxious, or on edge: 0 = Not at all Not being able to stop or control worryin = Not at all Worrying too much about different things: 0 = Not at all Trouble relaxin = Not at all Being so restless that it is hard to sit still: 0 = Not at all Becoming easily annoyed or irritable: 0 = Not at all Feeling afraid as if something awful might happen: 0 = Not at all Total KAYLA-7 score (0-4 normal; 5-9 mild; 10-14 moderate; 15-21 severe): 0 Source: Developed by Drs. Jacky Melgoza, Rachel Guardado, Gabriel Rossi and colleagues, with an educational margarita from [employer]. KAYLA-7 Assessment Billing KAYLA-7 Assessment Tool: KAYLA-7 Assessment 75867 Review of Systems Const All systems reviewed & are unremarkable except as noted in HPI and below Eyes Reports no additional complaints, Denies change in vision and Denies other visual disturbances Card Denies chest pain at rest, Denies chest pain with activity, Denies edema, Denies irregular heart rhythm, Denies claudication, Denies dyspnea, Denies dyspnea on exertion, Denies orthopnea, Denies paroxysmal nocturnal dyspnea and Denies slow heart rate Resp Denies cough, Denies dyspnea and Denies dyspnea on exertion GI Denies abdominal pain, Denies change in bowel habits, Denies excessive flatus, Denies nausea and Denies vomiting Denies urinary incontinence, Denies urinary hesitancy and Denies urinary urgency Musc Denies abnormal gait, Denies atrophy, Denies deformity and Denies limited range of motion Skin/Breast Denies bleeding lesions, Denies changing lesions and Denies rash Neuro Denies abnormal gait, Denies behavioral changes and Denies lack of coordination Psych Denies behavioral changes Physical exam (Primary Care) Vital Signs: Last Vital Signs BP 120/72 03/19/23 16:43 BMI result Body Mass Index 37.2 Tobacco/Smoking Status: Tobacco use Status Tobacco use date assessed 03/19/23 03/19/23 16:46 Patient Tobacco Use Status Current everyday Tobacco 03/19/23 16:46 Tobacco use type Cigarette 03/19/23 16:46 e-Cigarette/Vaping Use Never Used 03/19/23 16:46 PHQ-9: PHQ-9 Score PHQ-9: Total score 0 03/19/23 16:55 Depression Screening Interpretation: Negative Thrive Assessment: Date of Thrive Assessment Date Thrive assessed 03/19/23 03/19/23 16:48 Currently or been in a relationship where the following occur: no concerns reported Eyes General: appearance normal, both eyes and all related structures Eyelids: Yes eyelids normal Conjunctivae: conjunctivae normal Neck Neck: Yes normal visual inspection and Yes supple Resp Effort & Inspection: normal respiratory effort Auscultation: clear to auscultation bilaterally Cardio Jugular venous distension: no JVD Rate: regular rate Rhythm: regular rhythm Heart sounds: S1 normal heart sound present and S2 normal heart sound present Extrem General: Yes full ROM Assessment and Plan Assessment & Plan (1) JEYSON (obstructive sleep apnea): Code(s): G47.33 - Obstructive sleep apnea (adult) (pediatric) Plan: Home sleep study ordered. Weight reduction was advised. (2) Mixed hyperlipidemia: Code(s): E78.2 - Mixed hyperlipidemia Plan: Continue statins and fibrates. (3) KAYLA (generalized anxiety disorder): Code(s): F41.1 - Generalized anxiety disorder Plan: Continue citalopram. (4) Mild major depression: Code(s): F32.0 - Major depressive disorder, single episode, mild Plan: Continue citalopram. Orders: Orders Lipid Panel 03/19/23 E78.5 - Hyperlipidemia, unspecified Comprehensive [employer]. Panel Fast 03/19/23 E78.2 - Mixed hyperlipidemia Vitamin D 25-OH Total 03/19/23 E55.9 - Vitamin D deficiency, unspecified RT home sleep study 03/19/23 G47.33 - Obstructive sleep apnea (adult) (pediatric) Medications: New methocarbamol 750 mg PO Q8H 5 days 15 tabs 0RF hydrocortisone 1% (Cortisone (hydrocortisone)) 1 appl topical TID 2 weeks PRN 28.4 grams 0RF skin irritation Coding Level of Care Code Est Pt Level 4 (31271) Diagnoses JEYSON (obstructive sleep apnea) G47.33 Mixed hyperlipidemia E78.2 KAYLA (generalized anxiety disorder) F41.1 Mild major depression F32.0 Additional Codes KAYLA-7 Assessment Billing - KAYLA-7 Assessment Tool: KAYLA-7 Assessment 35807 ([id number]) Time Spent (min) 25
[2023-03-19 16:43] VITALS: BP 120/72; BMI 37.2
== END 2023-03-19 17:06 | disposition home or self-care (01) ==
LOC: HO.HMGH 16:30
PROVIDERS: PCP Internal Medicine; Visit Provider Internal Medicine
DX: G47.33 Obstructive sleep apnea (adult) (pediatric) (principal); E78.2 Mixed hyperlipidemia; F41.1 Generalized anxiety disorder; F32.0 Major depressive disorder, single episode, mild
CPT/HCPCS: 99214

== ENCOUNTER → 2023-05-04 16:02 | Outpatient (REF) | payer OTHER, SELFPAY | LOC: HO.SL 16:02 | PROVIDERS: PCP Internal Medicine; Visit Provider Internal Medicine | DX: G47.33 Obstructive sleep apnea (adult) (pediatric) (principal) | CPT/HCPCS: 95806 ==

== ENCOUNTER → 2023-05-04 16:08 | Outpatient (BNV) | payer OTHER, SELFPAY | PROVIDERS: PCP Internal Medicine; Visit Provider Internal Medicine | DX: R06.83 Snoring (principal) | CPT/HCPCS: 95806 ==

== ENCOUNTER 2023-07-28 15:55 | Outpatient (REF) | payer OTHER, SELFPAY | END 2023-07-28 15:56 | disposition home or self-care (01) | LOC: HO.MAMMO 15:55 | PROVIDERS: PCP Internal Medicine; Visit Provider Internal Medicine | DX: Z12.31 Encounter for screening mammogram for malignant neoplasm of breast (principal) | CPT/HCPCS: 77063; 77067 ==

== ENCOUNTER → 2023-07-28 16:00 | Outpatient (BNV) | payer OTHER, SELFPAY | PROVIDERS: PCP Internal Medicine; Visit Provider Radiology Diagnostic Radiology | DX: Z12.31 Encounter for screening mammogram for malignant neoplasm of breast (principal) | CPT/HCPCS: 77063; 77067 ==

== ENCOUNTER 2023-09-21 16:39 | Outpatient (AMB) | payer OTHER, SELFPAY ==
--- NOTE | 2023-09-21 16:41 | A.OFFPC_ITS ---
Vital Signs 09/21/23 16:42 Height 5 ft 3 in Weight 205 lb BMI 36.3 BP 122/84 Blood Pressure Location Lt brachial Position Sitting Intake Visit Reasons: PE Intake Note: Patient here for a physical exam Warp Hauler Required: No Accompanied by: Self / Same As Patient Allergies doxycycline [DOXYCYCLINE] Allergy (Intermediate, Verified 09/21/23 16:52) NAUSEA/VOMITING/ITCHING sertraline Adverse Reaction (Intermediate, Verified 09/21/23 16:52) Constipation Medication List - Last Reconciled 09/21/23 by Laila Aponte MD atorvastatin 20 mg PO BEDTIME 90 days cholecalciferol (vitamin D3) (Vitamin D3) 50 mcg PO DAILY citalopram 10 mg PO DAILY 30 days fenofibrate 54 mg PO DAILY 90 days levonorgestrel (Mirena) 52 mcg intrauterine USEASDIRECTD pantoprazole 40 mg (2 x 20 mg) PO DAILY Tobacco use date assessed: 03/19/23 Dental Screening Dental Screen Date: 09/21/23 Did you have a dental visit in the last 12 months?: No Did you have a dental problem in the last 6 months where you did not have access to dental care?: No Was dental information given to patient?: Patient has dentist HPI HPI Comments History of Present Illness Details This is a 52-year-old female with mild major depression that comes for her physical exam. Mammogram done 2023 that was normal. Pap smear done 2020 was normal. Colonoscopy was canceled and she will call to reschedule. She complains of a tooth infection and has daytime somnolence. She is a smoker and was advised to quit. She is obese with a BMI of 36.3 and was advised to do diet and exercise to reach BMI goal less than 30. She will be referred to sleep Medicine for daytime somnolence. [facility] Medical History (Updated 09/21/23 @ 17:12 by Laila Aponte MD) Depression Morbid obesity Daytime sleepiness Dyslipidemia Shoulder pain, left Hypercholesteremia Surgical History History of neck surgery History of section Family History Father EtOH dependence Cirrhosis Hypertension Substance use disorder Mother CKD (chronic kidney disease) Diabetes Hypertension Son In good health Brother Mantle cell lymphoma, Onset Age: 54 Social History Household Members: Significant Other Housing: House Alcohol intake: current Alcohol intake frequency: holidays/special occasions only Alcohol type: beer, wine and hard liquor Patient Tobacco Use Status: Current everyday Tobacco user Tobacco use type: Cigarette e-Cigarette/Vaping Use: Never Used Second Hand Smoke Exposure: No service: No Current occupational status: employed Current occupational exposures/hazards: No Sexual orientation: Straight/Heterosexual Gender identity: Female Cognitive needs: No Hearing needs: No Vision needs: No Female Reproductive History Menstrual Age of Menarche: 16 Questionnaire Thrive Questionnaire Date Thrive assessed: 03/19/23 KAYLA-7 AMB Questionnaire KAYLA-7 Date KAYLA - 7 assessed: 03/19/23 Source: Developed by Drs. Jacky Melgoza, Rachel Guardado, Gabriel Rossi and colleagues, with an educational margarita from [employer]. Review of Systems Const All systems reviewed & are unremarkable except as noted in HPI and below Card Denies chest pain at rest, Denies chest pain with activity, Denies edema, Denies irregular heart rhythm, Denies claudication, Denies dyspnea, Denies dyspnea on exertion, Denies orthopnea, Denies paroxysmal nocturnal dyspnea and Denies slow heart rate Resp Denies cough, Denies dyspnea and Denies dyspnea on exertion GI Denies abdominal pain, Denies change in bowel habits, Denies excessive flatus, Denies nausea and Denies vomiting Denies urinary incontinence, Denies urinary hesitancy and Denies urinary urgency Musc Denies abnormal gait, Denies atrophy, Denies deformity and Denies limited range of motion Skin/Breast Denies bleeding lesions, Denies changing lesions and Denies rash Neuro Denies abnormal gait, Denies behavioral changes and Denies lack of coordination Psych Denies behavioral changes Physical exam (Primary Care) Vital Signs: Last Vital Signs BP 122/84 09/21/23 16:42 BMI result Body Mass Index 36.3 BMI Assessment/Plan discussion: High BMI High, discussed plan: lifestyle, weight reduction, dietary and physical activity Tobacco/Smoking Status: Tobacco use Status Tobacco use date assessed 03/19/23 09/21/23 16:47 Patient Tobacco Use Status Current everyday Tobacco 09/21/23 16:47 Tobacco use type Cigarette 09/21/23 16:47 e-Cigarette/Vaping Use Never Used 09/21/23 16:47 Are you ready to quit: No Tobacco cessation counseling provided: Yes Items discussed: Nicotine replacement and QuitWorks Relapse Prevention: discussed the importance of a supportive environment, discussed extending NRT, discussed negative mood or depression after quitting, weight gain after smoking is common and discussed dietary, exercise and/or lifestyle changes Number of minutes spent counselin CPT code: 67025 - 4-10 Minutes Thrive Assessment: Date of Thrive Assessment Date Thrive assessed 03/19/23 09/21/23 16:47 HENOH Head: Yes normal to inspection, Yes normocephalic and Yes atraumatic Ears: external ears normal Eyes General: appearance normal, both eyes and all related structures Eyelids: Yes eyelids normal Conjunctivae: conjunctivae normal Neck Neck: Yes normal visual inspection and Yes supple Resp Effort & Inspection: normal respiratory effort Auscultation: clear to auscultation bilaterally Cardio Jugular venous distension: no JVD Rate: regular rate Rhythm: regular rhythm Heart sounds: S1 normal heart sound present and S2 normal heart sound present GI Inspection: Yes normal to inspection Palpation (GI): Soft to palpation and nontender Auscultation: normal bowel sounds Skin General skin exam: no rashes or lesions noted Neuro General: no focal motor deficits Extrem General: Yes full ROM Psych Appearance: grossly normal Assessment and Plan Assessment & Plan (1) Physical exam: Code(s): Z00.00 - Encounter for general adult medical examination without abnormal findings Plan: Repeat in a year. (2) Mild major depression: Code(s): F32.0 - Major depressive disorder, single episode, mild Plan: Continue citalopram. (3) Tooth infection: Code(s): K04.7 - Periapical abscess without sinus Plan: Start Augmentin. (4) Excessive daytime sleepiness: Code(s): G47.19 - Other hypersomnia Plan: Referred to sleep Medicine. Orders: Orders Lipid Panel Today E78.2 - Mixed hyperlipidemia, E78.5 - Hyperlipidemia, unspe cified Comprehensive [place]. Panel Fast Today E78.2 - Mixed hyperlipidemia Referrals Pulmonology Referral Z12.2 - Encounter for screening for malignant neoplasm of respiratory organs Sleep Medicine Referral G47.19 - Other hypersomnia Medications: New amoxicillin-pot clavulanate 875-125 mg 1 tab PO BID 14 tabs 0RF 7 days K04.7 - Periapical abscess without sinus Coding Level of Care Code Est Pt Level 3 (23473) Est Pt Prev Care 40-64y(08121) Diagnoses Physical exam Z00.00 Mild major depression F32.0 Tooth infection K04.7 Excessive daytime sleepiness G47.19 Additional Codes Vital Signs *Quality* - CPT code: 67512 - 4-10 Minutes ([id number]) Time Spent (min) 40
[2023-09-21 16:42] VITALS: BP 122/84; BMI 36.3
== END 2023-09-21 17:05 | disposition home or self-care (01) ==
PROVIDERS: PCP Internal Medicine; Visit Provider Internal Medicine
DX: Z00.00 Encounter for general adult medical examination without abnormal findings (principal); F32.0 Major depressive disorder, single episode, mild; K04.7 Periapical abscess without sinus; G47.19 Other hypersomnia
CPT/HCPCS: 99213; 99396

== ENCOUNTER 2023-11-20 10:13 | Outpatient (AMB) | payer OTHER, SELFPAY ==
--- NOTE | 2023-11-20 07:46 | A.OFFVIS_ITS ---
Intake Visit Reasons: Current Smoker Allergies doxycycline [DOXYCYCLINE] Allergy (Intermediate, Verified 09/21/23 16:52) NAUSEA/VOMITING/ITCHING sertraline Adverse Reaction (Intermediate, Verified 09/21/23 16:52) Constipation HPI HPI Current Smoker: Details: Initial visit for this 53yo smoker with a 20+PYH. Patient started smoking at age 16 for 37 years at 02/10-04/12ppd. . Denies marijuana use. Denies second hand smoke exposure. Denies exposure to chemicals or substances like asbestos. . Reports family history of lung cancer. maternal grandfather Denies personal history of cancers. Denies chest CT in last year. . Denies recent travel outside the [place]. Denies recent respiratory illness or recent hospitalization for respiratory issues. Reports testing positive for COVID. x2. Admits receiving COVID Vaccine. . Denies fever, chills, new/worsening cough, hemoptysis, hoarseness or dysphagia. Denies significant chest pain, significant dyspnea or unintentional weight loss. Patient Lung Cancer Screening Questionnaire reviewed with patient by provider. . Shared Decision Making Completed. Patient meets criteria. Discussed in detail with patient, the risk vs benefit of LDCT screening. Patient consents to proceed with scan. Discussed smoking cessation. [facility] Medical History (Updated 11/20/23 @ 10:32 by Marta Rodríguez PA-C) Mixed hyperlipidemia Acid reflux Elevated white blood cell count Nicotine dependence, cigarettes, uncomplicated Mild major depression KAYLA (generalized anxiety disorder) Vitamin D deficiency Obesity (BMI 30-39.9) Shoulder pain, left Surgical History (Updated 10/29/23 @ 10:45 by Marta Rodríguez PA-C) History of neck surgery History of section IUD (intrauterine device) in place Family History Father EtOH dependence Cirrhosis Hypertension Substance use disorder Mother CKD (chronic kidney disease) Diabetes Hypertension Son In good health Brother Mantle cell lymphoma, Onset Age: 54 Social History (Updated 11/20/23 @ 10:32 by Marta Rodríguez PA-C) Household Members: Significant Other Housing: House Alcohol intake: current Alcohol intake frequency: holidays/special occasions only Alcohol type: beer, wine and hard liquor Patient Tobacco Use Status: Current everyday Tobacco user Tobacco use type: Cigarette Years Smoked: (onset 16yo, 1/2-3/4ppd x 37yrs, 20+PYH) e-Cigarette/Vaping Use: Never Used Second Hand Smoke Exposure: No service: No Current occupational status: employed Current occupational exposures/hazards: No Sexual orientation: Straight/Heterosexual Gender identity: Female Cognitive needs: No Hearing needs: No Vision needs: No Female Reproductive History Menstrual Age of Menarche: 16 Quality Reporting (2019) Adult ([facility] 138/04/02/68) Smoking risk assessment performed?: Yes Patient Tobacco Use Status: Current everyday Tobacco user Assessment & Plan Assessment & Plan (1) Nicotine dependence, cigarettes, uncomplicated: Comment: (onset 16yo, 1/2-3/4ppd x 37yrs, 20+PYH) Code(s): F17.210 - Nicotine dependence, cigarettes, uncomplicated Category: Medical Plan: - SDM visit completed today in office. - Patient meets criteria for LDCT for lung cancer screening purposes and is asymptomatic. - Smoking cessation counseling offered. Patients can always call [phone]. - Will arrange for a LDCT scan of the chest for screening purposes at [facility]. - Risks, benefits, and alternatives were discussed in detail and the patient agrees to proceed. - Risks discussed include but are not limited to: radiation exposure, anxiety during testing and while awaiting results, false negatives, false positives and possibility of additional intervention such as further imaging or surgical procedures for benign disease. - Benefits are obviously detection of lung cancer at an early stage which can lead to improved outcomes. - Discussed the importance of screening program compliance with adherence to yearly LDCT scan as scheduled - or sooner interval scans for personalized screening regimen. - Discussed follow up plan. Our office will send a letter discussing results and if needed set up phone call and office visit based on CT findings. - Patient educated on results categorization and the management decisions for suspicious findings potentially found on the screening LDCT scan. Any patient with a Lung RADS score of 3 or 4 will be reviewed by a multidisciplinary team at [facility] to form a plan of action in regards to scan findings. - If further work up is warranted for a suspicious lung finding this will be followed by the Lung Cancer Screening program in conjunction with the Thoracic Surgery Department at [facility]. - A copy of the office note and LDCT will be sent to the patient's PCP - as well as documentation on any associated further plans of care. - Incidental findings on LDCT are the PCP's responsibility. These findings are indicated with an S finding on the LDCT Assessment. A note discussing the findings will be sent to the PCP who is then responsible for further management. - All questions answered.? Coding Level of Care Code Lung Cancer Screening G0296 Diagnoses Nicotine dependence, cigarettes, uncomplicated F17.210
== END 2023-11-20 11:07 | disposition home or self-care (01) ==
PROVIDERS: PCP Internal Medicine; Visit Provider Physician Assistant Medical
DX: F17.210 Nicotine dependence, cigarettes, uncomplicated (principal)
CPT/HCPCS: G0296

== ENCOUNTER 2023-11-20 10:29 | Outpatient (REF) | payer OTHER, SELFPAY ==
--- NOTE | ~2023-11-20 | CT_ITS ---
EXAMINATION: CT LOW-DOSE SCREENING CHEST WITHOUT CONTRAST CLINICAL INFORMATION: Nicotine dependence, cigarettes, uncomplicated. The patient is a current smoker with a 36 pack-year history of smoking. COMPARISON: Chest x-ray 12/24/2019 and 02/22/2015. TECHNIQUE: Multidetector volumetric CT imaging of the chest is performed on a Siemens SOMATOM Definition scanner without contrast using low dose technique. Additional 2D coronal and sagittal reformatted images and axial 3D maximum intensity projection (MIP) images are generated on the CT workstation. This CT examination was performed using dose optimization techniques as appropriate, variously including the following: *Automated exposure control *Adjustment of mA and/or kV according to patient size (this includes techniques or standardized protocols for targeted exams where dose is matched to indication/reason for exam; i.e. extremities or head) *Use of iterative reconstruction technique TOTAL EXAM DLP: 63 mGy-cm. CTDIvol: 1.97 mGy. FINDINGS: PULMONARY NODULES: No suspicious pulmonary nodules. LUNGS: Lungs bilaterally symmetrically expanded emphysematous changes are seen along with bronchial thickening without bronchiectasis. There is a ground-glass opacity seen in the left upper lobe measuring about 4.7 x 3.0 x 2.6 cm (mean diameter 3.4 cm). Some more ill-defined ground-glass opacity is seen in the right upper lobe. No effusion or pneumothorax. Central airways patent. MEDIASTINUM: No mediastinal, hilar or axillary adenopathy or free fluid collection. CORONARY ARTERY CALCIFICATION: None visualized on this study. THYROID GLAND: Unremarkable to the extent seen. CARDIOVASCULAR STRUCTURES: Aortic and heart size normal. No pericardial effusion. CHEST WALL/AXILLA: Unremarkable. UPPER ABDOMEN: There is hepatic steatosis. OSSEOUS STRUCTURES: No suspicious focal findings. CT/CT lung screening IMPRESSION: Baseline exam shows a 3.4 cm mean diameter left upper lobe ground-glass opacity, probably benign. ASSESSMENT: 1. Lung-RADS Category 3: Probably benign findings. N/A 2. Lung-RADS Category S: Negative. There are no clinically significant or potentially clinically significant findings not related to the lungs requiring urgent additional evaluation. RECOMMENDATION: A 6-month follow up low-dose lung CT scan is recommended. An order for CT LUNG CANCER SCREENING SHORT INTERVAL FOLLOWUP ([id number]) can be placed. Electronically signed by: Luciano Courtney MD 01/01/2024 11:24 PM YOLANDA RP
== END 2023-11-20 10:30 | disposition home or self-care (01) ==
LOC: HO.CT 10:29
PROVIDERS: PCP Internal Medicine; Visit Provider Physician Assistant Medical
DX: Z12.2 Encounter for screening for malignant neoplasm of respiratory organs (principal); F17.210 Nicotine dependence, cigarettes, uncomplicated
CPT/HCPCS: 71271; G0296

== ENCOUNTER 2024-03-10 10:41 | Outpatient (AMB) | payer OTHER, SELFPAY ==
[2024-03-10 10:46] VITALS: BP 102/74; PULSE 81; O2SAT 97; BMI 38.9
--- NOTE | 2024-03-10 10:46 | A.OFFVIS_ITS ---
Vital Signs 03/10/24 10:46 Height 5 ft 3 in Weight 219 lb 5.759 oz BMI 38.9 BP 102/74 Blood Pressure Location Lt brachial Position Sitting Pulse 81 Pulse Source Pulse Oximeter Pulse Oximetry (%) 97 Oxygen Delivery Method Room Air Intake Visit Reasons: Abnormal CT scan Digital Communications Manager Required: No Allergies doxycycline [DOXYCYCLINE] Allergy (Intermediate, Verified 03/10/24 10:49) NAUSEA/VOMITING/ITCHING sertraline Adverse Reaction (Intermediate, Verified 03/10/24 10:49) Constipation HPI HPI Abnormal CT scan: Details: 53-year-old lady, active 30+ pack-year smoker, referred for evaluation of CT chest noted on lung cancer. Patient does have approximately 3 cm ground-glass opacity in her left upper lung. She denies any significant pulmonary concerns or complaints with exception of intermittent dyspnea on exertion. Patient does have history of lung cancer in her grandfather. She is currently on no bronchodilator therapy. Patient is also complain of unrestful sleep, snoring, and daytime sleepiness. [facility] Medical History (Updated 03/10/24 @ 11:26 by Cam Lambert MD) Mixed hyperlipidemia Acid reflux Elevated white blood cell count Nicotine dependence, cigarettes, uncomplicated Mild major depression KAYLA (generalized anxiety disorder) Vitamin D deficiency Obesity (BMI 30-39.9) Shoulder pain, left Surgical History (Updated 10/29/23 @ 10:45 by Marta Rodríguez PA-C) History of neck surgery History of section IUD (intrauterine device) in place Family History Father EtOH dependence Cirrhosis Hypertension Substance use disorder Mother CKD (chronic kidney disease) Diabetes Hypertension Son In good health Brother Mantle cell lymphoma, Onset Age: 54 Social History (Updated 03/10/24 @ 10:50 by JERMAINE Bermudez) Household Members: Significant Other Housing: House Alcohol intake: current Alcohol intake frequency: holidays/special occasions only Alcohol type: beer, wine and hard liquor Patient Tobacco Use Status: Current everyday Tobacco user Tobacco use type: Cigarette Cigarette Packs Per Day: 0.5 Cigarettes Per Day: 10 Years Smoked: (onset 16yo, 1/2-3/4ppd x 37yrs, 20+PYH) e-Cigarette/Vaping Use: Never Used Second Hand Smoke Exposure: No service: No Current occupational status: employed Current occupational exposures/hazards: No Sexual orientation: Straight/Heterosexual Gender identity: Female Cognitive needs: No Hearing needs: No Vision needs: No Female Reproductive History Menstrual Age of Menarche: 16 Review of Systems Const Denies daytime sleepiness, Denies excessive sweating, Denies fatigue, Denies fever(s), Denies lethargy, Denies malaise, Denies night sweats, Denies snoring and Denies weight loss Eyes Denies blurry vision and Denies itchy eyes ENT Denies nasal congestion, Denies post nasal drip, Denies sinus pain, Denies sinus pressure and Denies other ( Thrush) Card Denies chest pain, Denies pedal edema, Denies dyspnea, Denies orthopnea and Denies paroxysmal nocturnal dyspnea Resp Denies cough, Denies hemoptysis, Denies excessive phlegm production, Denies dyspnea, Denies snoring and Denies wheezing GI Denies abdominal pain and Denies heartburn Musc Denies myalgias, Denies arthralgias and Denies joint swelling Skin/Breast Denies rash Neuro Denies memory loss and Denies seizure-like activity Psych Denies abnormal sleep pattern, Denies anxiety and Denies memory loss Endo Denies excessive sweating, Denies fatigue and Denies heat intolerance Lele/Lymph Denies easy bruising Aller/Immun Denies itchy eyes, Denies seasonal rhinorrhea and Denies wheezing Physical Exam Vital Signs: Last Vital Signs Pulse 81 03/10/24 10:46 BP 102/74 03/10/24 10:46 Pulse Ox 97 03/10/24 10:46 Oxygen Delivery Method Room Air 03/10/24 10:46 BMI result Body Mass Index 38.9 Const General: no acute distress and alert Nutritional Appearance: obese Orientation/consciousness: Other orientation findings ( oriented) HEENT Head: Yes atraumatic Eyes General: appearance normal, both eyes and all related structures Sclerae: sclerae normal EOM: EOMs intact bilaterally Neck Neck: Yes supple Lymphatic: no lymphadenopathy noted Resp Effort & Inspection: normal respiratory effort and no use of accessory muscles Auscultation: clear to auscultation bilaterally Cardio Rate: regular rate Rhythm: regular rhythm Heart sounds: no gallops, no murmurs and no rubs Skin General skin exam: other ( warm) Extrem General: No clubbing, No cyanosis and No edema Quality Reporting (2019) Adult ([facility] 138//) Smoking risk assessment performed?: Yes Patient Tobacco Use Status: Current everyday Tobacco user Assessment & Plan Assessment & Plan (1) JEYSON (obstructive sleep apnea): Code(s): G47.33 - Obstructive sleep apnea (adult) (pediatric) Category: Medical Plan: Unrestful sleep, snoring, daytime sleepiness. [place] Sleepiness Scale score of 15. Will obtain home sleep study. (2) Nicotine dependence, cigarettes, uncomplicated: Comment: (onset 16yo, 1/2-3/4ppd x 37yrs, 20+PYH) Code(s): F17.210 - Nicotine dependence, cigarettes, uncomplicated Category: Medical Plan: Results of lung cancer screening CT chest reviewed, underlying new 3 cm ground- glass area, will repeat CT chest in 6 months. (3) COPD (chronic obstructive pulmonary disease): Code(s): J44.9 - Chronic obstructive pulmonary disease, unspecified Category: Medical Plan: Likely underlying COPD of unclear severity with intermittent dyspnea. Will obtain full PFT and start on empiric Anoro. Orders: Orders CT chest wo IV con 06/08/24 R93.89 - Abnormal findings on diagnostic imaging of other specified body structures PFT pulmonary function test Today J44.9 - Chronic obstructive pulmonary disease, unspecified RT home sleep study Today G47.33 - Obstructive sleep apnea (adult) (pediatric) Medications: New umeclidinium-vilanterol 62.5-25 mcg/actuation (Anoro Ellipta) 1 inh inhalation DAILY 1 ea 6RF J44.9 - Chronic obstructive pulmonary disease, unspecified Coding Level of Care Code New Pt Level 4 (44927) Diagnoses JEYSON (obstructive sleep apnea) G47.33 Nicotine dependence, cigarettes, uncomplicated F17.210 COPD (chronic obstructive pulmonary disease) J44.9
--- OUTSIDE RECORDS SUMMARY | 2024-03-10 14:21 | XMS_ITS | Data Portability ---
Author Organization HARVEY Wong [facility], [address] Address [address] [place] [address] Assessment No assessment recorded. Plan of Treatment Reminders Order Date Submit Date Provider Last Modified By Organization Details Last Modified Time Details Appointments None recorded. Lab None recorded. Referral None recorded. Procedures None recorded. Surgeries None recorded. Imaging None recorded. Medication Orders cyclobenzap rine 10 mg tablet 2023 024 [facility]acy #[id number], [address] [place], [address], 17:51:07 diclofenac sodium 75 mg tablet,soledad yed release 2023 024 [facility]/Pharmacy #[id number], [address] [place], [address], 17:51:08 Medrol (Jamison) 4 mg tablets in a dose pack [address] [facility] [place]Pharmacy #[id number], [address] [place], [address], 19:32:45 Patient TargetsNo targets recorded. Patient Instructions Encounter Date Encounter Id Patient Instructions Last Modified By Organization Details Last Modified Time 06/24/2023 [id number] Start with the Medrol pack as directed. Use the diclofenac as directed as needed after you finish the Medrol pack. Do not take at the same time. [email or web address] Not available 06/24/2023 19:32:37 Reason for Referral None Reported. Problems Name Problem SNOMED Code Status Onset Date Resolution Date Notes Provider Name and Address Organization Details Recorded Time Hypercholestero lemia 28863771 Active 2023 Julianne chau PA - [facility] 17:10:01 Anxiety 65027490 Active Julianne chau PA - [facility] 17:10:25 Problem Notes None recorded. Medical Equipment None Reported. Allergies No known drug allergies Medications Name Sig Start Date Stop Date Status Note LastModified by Organization Details LastModified Time cyclobenzaprin e 10 mg tablet Take 1 tablet 3 times a day by oral route as needed for 7 days, for muscle spasm. 2023 active Not Available Not Available Not Avai lable atorvastatin 10 mg tablet Take 1 tablet every day by oral route. active Not Available Not Available No t Available citalopram 10 mg tablet Take 1 tablet every day by oral route. active Not Available Not Available No t Available Medrol (Jamison) 4 mg tablets in a dose pack Take each daily dose as directed by the package. 2023 active Not Available Not Available Not Avai lable diclofenac sodium 75 mg tablet,delayed release Take 1 tablet twice a day by oral route with meal(s) for 15 days, for muscle pain. 2023 active Not Available Not Available Not Avai lable Protonix 40 mg granules delayed-releas e packet Take 1 packet every day by oral route. active Not Available Not Available No t Available vitamin D3 1,250 mcg (50,000 unit)-vitamin K2 200 mcg capsule Take by oral route. active Not Available Not Available No t Available Vitals Date Recorded Body height Provider Name an d Address Organization Details Last Updated DateTime 06/24/2023 160.02 cm Julianne Billy PA - [facility] 06/24/2023 17:08:13 Date Recorded Body mass index (BMI) Body weight Provider Name and Address Organization Details Last Updated DateTime 06/24/2023 38.1 kg/m2 27164.36 g Julianne Billy PA - [facility] 06/24/2023 17:08:20 Date Recorded Oxygen saturation Oxygen saturation in Arterial blood by Pulse oximetry Provider Name and Address Organization Details Last Updated DateTime 06/24/2023 97 % 97 % Corrie Tohrpe PA - [facility] 06/24/2023 17:27:13 Date Recorded Heart rate Provider Name an d Address Organization Details Last Updated DateTime 06/24/2023 80 /min Corrie Thorpe PA - [facility] 06/24/2023 17:27:17 Date Recorded Respiratory rate Provider Name a nd Address Organization Details Last Updated DateTime 06/24/2023 19 /min Corrie Thorpe PA - [facility] 06/24/2023 17:27:22 Date Recorded Body temperature Provider Name a nd Address Organization Details Last Updated DateTime 06/24/2023 98.9 [degF] Corrie Thorpe PA - [facility] 06/24/2023 17:27:28 Date Recorded Systolic blood pressure Diastolic blood pressure Provider Name and Address Organization Details Last Updated DateTime 06/24/2023 116 mm[Hg] 77 mm[Hg] Corrie Thorpe PA - [facility] 06/24/2023 17:27:07 Social History Question Answer Notes LastModified by GoodData ion Details LastModified Time Tobacco Smoking Status Never Smoker Julianne chau PA - [facility] 06/24/2023 17:10:44 What Is Your Level Of Alcohol Consumption? None Information not available 06/24/2023 Have You Had A Flu Shot This Season? Yes Information not available 06/24/2023 Have You Had Direct Contact, Or Contact During Intimacy, With Monkeypox Rash, Scabs, Or Body Fluids From A Person With Monkeypox? No Information not available 06/24/2023 What Was The Date Of Your Most Recent Tobacco Screening? 06/24/2023 Information not available 06/24/2023 Do You Use Any Illicit Or Recreational Drugs? No Information not available 06/24/2023 Have You Recently Traveled Abroad? No Information not available 06/24/2023 Do You Or Have You Ever Used Any Other Forms Of Tobacco Or Nicotine? Yes Information not available 06/24/2023 Sex: Unknown Functional Status None recorded. Mental Status None recorded. Family History Relationship Description Onset Age of this Age Resolved Age Notes LastModified by Organization Details LastModified Time Father No current problems or disability Not available 17:10:28 Mother No current problems or disability Not available 17:10:28 Medical History No medical history recorded. Gynecological History Statement/Question Response Is there any chance of ? No Obstetrics History GPAL:G 0 P 0 0 0 0 Past Encounters Encounter ID Performer Location Encounter Start Date Encounter Closed Date Diagnosis/Indication Diagnosis SNOMED-CT Code Diagnosis ICD10 Code Diagnosis Note [id number] [address] [place] [address] 09/04/2019 18:45:12 09/04/2019 19:04:41 [id number] [address] 03/19/2019 16:29:14 03/19/2019 17:41:36 [id number] [address] [address] 11/19/2017 12:49:01 11/19/2017 13:37:51 [id number] [facility] [address] [address] 04/19/2017 17:15:05 04/19/2017 18:44:16 [id number] YOSELIN HERNANDEZ MD [address] [address] [address] 06/24/2023 16:54:49 06/24/2023 17:52:11 Muscle spasm of thoracic back [id number] 96075 M62.830 MUSCU LOSKELETAL PAIN can be managed quite effectivel y with over the counter medication s and home treatments . When suffering from sprains, strains, contusions and other types of very painful but non-danger ous musculoske letal pain try the following: ?1. ACETAMINOP HEN 1,000 mg or 6 hours is needed for pain.?2. HEAT as needed for pain. Only use heat for about 20 minutes at a time to prevent skin damage. You may switch from one to the other if it helps. Repeat frequently throughout the day as needed. Please do not fall asleep while using heat as severe hatfield can result.?3. Topical medication such asStop Pain or BioFreezef eels good to rub on painful areas. Do not apply over broken skin.?4. Many musculoske letal injuries can benefit from gentle stretching or strengthen ing exercises. 5. Wear a back support brace while working to take the strain of of you back.?If pain does not improve please see your doctor or return to [facility] within one week. If your symptoms become severe or uncontroll ed or if you develop new concerning symptoms please go to the Emergency Department for evaluation and pain control. Health Concerns Section Related Observation LastModified by Organization Detai ls LastModified Time None Recorded Concern Status LastModified by Organization Details LastModified Time None Recorded Advance Directives Directive None Recorded Payers Encounter Date Sequence Insurance Name Policy Number Policy Pritchett Covered Member ID Pritchett Member ID Guarantor Name 04/19/2017 1 [facility] [id number] 1 Cara Mantilla [id number] Cara Mantilla 11/19/2017 1 [facility] [id number] 1 Cara Mantilla [id number] Cara Mantilla 03/19/[address] [place] [address] [id number] Cara Mantilla [id number] Cara Mantilla 09/04/[address] [place] [address] [id number] Cara Mantilla [id number] Cara Mantilla 06/24/[address] [place] [address] [id number] Cara Mantilla [id number] Cara Mantilla Notes Date Note Type Note Provider Name and Address Organization Details Recorded Time 06/24/2023 text/html 52 yo female wit h 6 day hx of left side chest/rib pain. It was initially intermittent then became worse. No hx of trauma, recent infection, or insect bites. YOSELIN HERNANDEZ MD [address] [place], [address], PA - [facility] 06/24/2023 19:32:56 OBGyn Episode No OBEpisode recorded.
== END 2024-03-10 11:17 | disposition home or self-care (01) ==
PROVIDERS: PCP Internal Medicine; Visit Provider Internal Medicine Pulmonary Disease
DX: G47.33 Obstructive sleep apnea (adult) (pediatric) (principal); F17.210 Nicotine dependence, cigarettes, uncomplicated; J44.9 Chronic obstructive pulmonary disease, unspecified
CPT/HCPCS: 99204

== ENCOUNTER → 2024-04-17 20:30 | Outpatient (REF) | payer OTHER, SELFPAY | LOC: HO.SL 20:30 | PROVIDERS: PCP Internal Medicine; Visit Provider Internal Medicine Pulmonary Disease | DX: G47.33 Obstructive sleep apnea (adult) (pediatric) (principal) | CPT/HCPCS: 95810 ==

== ENCOUNTER → 2024-04-17 23:19 | Outpatient (BNV) | payer OTHER, SELFPAY | PROVIDERS: PCP Internal Medicine; Visit Provider Internal Medicine | DX: R06.83 Snoring (principal) | CPT/HCPCS: 95810 ==

== ENCOUNTER 2024-04-19 15:51 | Outpatient (REF) | payer OTHER, SELFPAY ==
--- NOTE | 2024-04-19 15:59 | PFT_ITS ---
Flows: FEV1: 96 % of predicted at 2.54 L FVC: 91 % of predicted at 3.00 L FEV1/FVC: 85 % Bronchodilator response: Absent Volumes: Total lung capacity: 80 % of predicted at 4.00 L Residual volume: 69 % of predicted at 1.03 L Slow vital capacity: 84 % of predicted at 2.98 L Expiratory reserve volume: 16 % of predicted at 0.15 L Diffusion capacity: Normal Impression: No obstructive or restrictive ventilatory defect. No bronchodilator response. Decreased expiratory reserve volume suggests extrathoracic restriction likely secondary to abdominal obesity. MTDD
[2024-04-19 16:42] VITALS: PULSE 65
--- OUTSIDE RECORDS SUMMARY | 2024-04-19 19:11 | XMS_ITS | Data Portability ---
Author Organization HARVEY Wong [facility], [address] Address [address] [place] [address] Assessment No assessment recorded. Plan of Treatment Reminders Order Date Submit Date Provider Last Modified By Organization Details Last Modified Time Details Appointments None recorded. Lab None recorded. Referral None recorded. Procedures None recorded. Surgeries None recorded. Imaging None recorded. Medication Orders cyclobenzap rine 10 mg tablet 2023 024 [facility]armacy #[id number], [address] [place], [address], 17:51:07 diclofenac sodium 75 mg tablet,soledad yed release 2023 024 [facility]armacy #[id number], [address] [place], [address], 17:51:08 Medrol (Jamison) 4 mg tablets in a dose pack 2023 024 [id number] [address] [place], [address], 19:32:45 Patient TargetsNo targets recorded. Patient Instructions Encounter Date Encounter Id Patient Instructions Last Modified By Organization Details Last Modified Time 06/24/2023 [id number] Start with the Medrol pack as directed. Use the diclofenac as directed as needed after you finish the Medrol pack. Do not take at the same time. [email or web address] Not available 06/24/2023 19:32:37 Reason for Referral None Reported. Problems Name Problem SNOMED Code Status Onset Date Resolution Date Notes Provider Name and Address Organization Details Recorded Time Hypercholestero lemia 19140390 Active 2023 Julianne chau PA [facility] 4 17:10:01 Anxiety 09653804 Active Julianne chau [facility] 4 17:10:25 Problem Notes None recorded. Medical Equipment [...] t Available Vitals Date Recorded Body height Body mass index (BMI) Body weight Provider Name and Address Organization Details Last Updated DateTime 06/24/2023 160.02 cm 38.1 kg/m2 88059.36 g Julianne Billy [facility] 06/24/2023 17:08:20 Date Recorded Oxygen saturation Oxygen saturation in Arterial blood by Pulse oximetry Heart rate Respiratory rate Body temperature Systolic blood pressure Diastolic blood pressure Provider Name and Address Organization Details Last Updated DateTime 4 97 % 97 % 80 /min 19 /min 98.9 [degF] 116 mm[Hg] 77 mm[Hg] Corrie Thorpe [facility] 4 17:27:07 Social History Question Answer Notes LastModified by Organizat ion Details LastModified Time Tobacco Smoking Status Never Smoker HARVEY Hernandez - [facility] 06/24/2023 17:10:44 What Is [...] SNOMED-CT Code Diagnosis ICD10 Code Diagnosis Note [id number] [address] [address] [place] [id number] 09/04/2019 18:45:12 09/04/2019 19:04:41 [id number] [facility] [address] [address] 03/19/2019 16:29:14 03/19/2019 17:41:36 [id number] [facility] [address] [address] 11/19/2017 12:49:01 11/19/2017 13:37:51 [id number] [facility] [address] [place] [address] 04/19/2017 17:15:05 04/19/2017 18:44:16 [id number] YOSELIN HERNANDEZ MD [address] [facility] [address] 06/24/2023 16:54:49 06/24/2023 17:52:11 Muscle spasm of thoracic back 8515094398 02050 M62.830 MUSCU LOSKELETAL PAIN can be managed [...] [facility]. If your symptoms become [...] Pritchett Member ID Guarantor Name 04/19/2017 1 [facility] [id number] 1 Cara Devrieswski [id number] Cara Jose Rafael 11/19/2017 1 [facility] [id number] 1 Cara Holm Jose Rafael [id number] Cara Devrieswski 03/19/2019 1 [facility] [id number] 1 Cara L Jose Rafael [id number] Cara Jose Rafael 09/04/2019 1 [facility] [id number] 1 Cara Holm Jose Rafael [id number] Cara Perezki 06/24/2023 1 [facility] [id number] 1 Cara Holm Jose Rafael [id number] Cara Jose Rafael Notes Date Note Type Note Provider Name and Address Organization Details Recorded Time 06/24/2023 text/html 52 yo female wit h 6 day hx of left side chest/rib pain. It was initially intermittent then became worse. No hx of trauma, recent infection, or insect bites. YOSELIN HERNANDEZ MD [address] [place], [address], [place] - [facility] 06/24/2023 19:32:56 OBGyn Episode No OBEpisode recorded.
== END 2024-04-19 15:52 | disposition home or self-care (01) ==
LOC: HO.RESP 15:51
PROVIDERS: PCP Internal Medicine; Visit Provider Internal Medicine Pulmonary Disease
DX: J44.9 Chronic obstructive pulmonary disease, unspecified (principal)
CPT/HCPCS: 94010; 94640; 94727

== ENCOUNTER → 2024-04-19 15:59 | Outpatient (BNV) | payer OTHER, SELFPAY | PROVIDERS: PCP Internal Medicine; Visit Provider Internal Medicine Pulmonary Disease | DX: J44.9 Chronic obstructive pulmonary disease, unspecified (principal) | CPT/HCPCS: 94060; 94727; 94729 ==

== ENCOUNTER → 2024-05-13 07:53 | Outpatient (BNVA) | payer OTHER, SELFPAY | PROVIDERS: PCP Internal Medicine; Visit Provider Internal Medicine | DX: S39.012A Strain of muscle, fascia and tendon of lower back, initial encounter (principal); W17.89XA Other fall from one level to another, initial encounter | CPT/HCPCS: 99202 ==

== ENCOUNTER → 2024-05-18 09:23 | Outpatient (BNVA) | payer OTHER, SELFPAY | PROVIDERS: PCP Internal Medicine; Visit Provider Internal Medicine | DX: S39.012A Strain of muscle, fascia and tendon of lower back, initial encounter (principal); W17.89XA Other fall from one level to another, initial encounter | CPT/HCPCS: 99213 ==

== ENCOUNTER → 2024-05-25 14:22 | Outpatient (BNVA) | payer OTHER, SELFPAY | PROVIDERS: PCP Internal Medicine; Visit Provider Physician Assistant Medical | DX: S39.012A Strain of muscle, fascia and tendon of lower back, initial encounter (principal); W17.89XA Other fall from one level to another, initial encounter | CPT/HCPCS: 99213 ==

== ENCOUNTER 2024-06-02 16:22 | Outpatient (REF) | payer OTHER, SELFPAY ==
--- NOTE | ~2024-06-02 | CT_ITS ---
CLINICAL HISTORY: R93.89 - Abnormal findings on diagnostic imaging of other specified body... CT chest without IV contrast. COMPARISON: CT chest dated 11/20/23 at 10:35 EDT FINDINGS: Visualized thyroid is unremarkable. No supraclavicular or axillary lymphadenopathy. Ascending aorta and main pulmonary artery are normal in caliber. No pericardial effusion. Normal esophagus. Multiple normal-sized mediastinal lymph nodes, similar to prior imaging. No pleural effusion. Ill-defined ground-glass opacities within the left and right upper lobes, similar to prior imaging. Ground-glass opacity area in the left upper lobe measures approximately 4.8 x 3.5 cm (series 3, image 59), stable from prior imaging when remeasured in similar fashion. Ground-glass opacity area within the right upper lobe measures approximately 6.4 x 4.2 cm (series 3, image 63), and was not as clearly seen on prior imaging although this could be secondary to technique. No solid component identified within either of the regions. Trachea and central airways are clear. No significant bronchial wall thickening. No bronchiectasis. No pulmonary nodule identified. Hepatic steatosis. No acute fracture or suspicious osseous abnormality. IMPRESSION: 1. Similar appearance of ill-defined ground-glass opacities within the upper lobes bilaterally most suggestive of a chronic infectious or inflammatory process. Recommend continued annual low-dose CT of the chest. This document has been electronically signed by: Cesar Rene MD on 06/03/2024 13:01:56
--- OUTSIDE RECORDS SUMMARY | 2024-06-02 18:44 | XMS_ITS | Data Portability ---
Author Organization HARVEY Wong s, [id number] Address [address] [place] [address] Assessment No assessment recorded. Plan of Treatment Reminders Order Date Submit Date Provider Last Modified By Organization Details Last Modified Time Details Appointments None recorded. Lab None recorded. Referral None recorded. Procedures None recorded. Surgeries None recorded. Imaging None recorded. Medication Orders cyclobenzap rine 10 mg tablet 2023 024 [facility][id number], [address] [place], [address], 17:51:07 diclofenac sodium 75 mg tablet,soledad yed release 2023 024 [facility][id number], [address] [place], [address], 17:51:08 Medrol (Jamison) 4 mg tablets in a dose pack 2023 024 [id number] [address] [place], [address], 19:32:45 Patient TargetsNo targets recorded. Patient Instructions Encounter Date Encounter Id Patient Instructions Last Modified By Organization Details Last Modified Time 06/24/2023 [id number] Start with the Medrol pack as directed. Use the diclofenac as directed as needed after you finish the Medrol pack. Do not take at the same time. [email or web address] Not available 06/24/2023 19:32:37 Reason for Referral None Reported. Problems Name Problem SNOMED Code Status Onset Date Resolution Date Notes Provider Name and Address Organization Details Recorded Time Hypercholestero lemia 01451009 Active 2023 Julianne chau PA [facility] 4 17:10:01 Anxiety 46245414 Active Julianne chau [facility] 4 17:10:25 Problem Notes None [...] Updated DateTime 06/24/2023 160.02 cm 38.1 kg/m2 63899.36 g Julianne Billy [facility] 06/24/2023 17:08:20 Date Recorded Oxygen saturation Oxygen saturation in Arterial blood by Pulse oximetry Heart rate Respiratory rate Body temperature Systolic blood pressure Diastolic blood pressure Provider Name and Address Organization Details Last Updated DateTime 4 97 % 97 % 80 /min 19 /min 98.9 [degF] 116 mm[Hg] 77 mm[Hg] Corrie Thorpe [facility] 4 17:27:07 Social History Question [...] SNOMED-CT Code Diagnosis ICD10 Code Diagnosis Note [id number] [address] [place] [address] 09/04/2019 18:45:12 09/04/2019 19:04:41 [id number] [address] [address] 03/19/2019 16:29:14 03/19/2019 17:41:36 [id number] [address] [address] 11/19/2017 12:49:01 11/19/2017 13:37:51 [id number] [facility] [address] [place] [address] 04/19/2017 17:15:05 04/19/2017 18:44:16 [id number] YOSELIN HERNANDEZ MD [address] [address] 06/24/2023 16:54:49 06/24/2023 17:52:11 Muscle spasm of thoracic back [id number] 26232 M62.830 MUSCU LOSKELETAL PAIN can be managed [...] [facility]. If your symptoms become [...] Pritchett Member ID Guarantor Name 04/19/[address] [facility] [id number] 1 Cara Devrieswski [id number] Cara Jose Rafael 11/19/[address] [facility] [id number] 1 Cara Holm Jose Rafael [id number] Cara Devrieswski 03/19/[address] [facility] [id number] 1 Cara L Jose Rafael [id number] Cara Jose Rafael 09/04/[address] [facility] [id number] 1 Cara Holm Jose Rafael [id number] Cara Perezki 06/24/[address] [facility] [id number] 1 Cara Holm Jose Rafael [id number] Cara Jose Rafael Notes Date Note Type Note Provider Name and Address Organization Details Recorded Time 06/24/2023 text/html 52 yo female wit h 6 day hx of left side chest/rib pain. It was initially intermittent then became worse. No hx of trauma, recent infection, or insect bites. YOSELIN HERNANDEZ MD [address] [place], [address], [place] - [facility] 06/24/2023 19:32:56 OBGyn Episode No OBEpisode recorded.
== END 2024-06-02 16:23 | disposition home or self-care (01) ==
LOC: HO.CT 16:22
PROVIDERS: PCP Internal Medicine; Visit Provider Internal Medicine Pulmonary Disease
DX: R93.89 Abnormal findings on diagnostic imaging of other specified body structures (principal)
CPT/HCPCS: 71250

== ENCOUNTER → 2024-06-02 16:27 | Outpatient (BNV) | payer OTHER, SELFPAY | PROVIDERS: PCP Internal Medicine; Visit Provider Radiology Diagnostic Radiology | DX: R93.89 Abnormal findings on diagnostic imaging of other specified body structures (principal) | CPT/HCPCS: 71250 ==

== ENCOUNTER → 2024-06-08 09:52 | Outpatient (BNVA) | payer OTHER, SELFPAY | PROVIDERS: PCP Internal Medicine; Visit Provider Internal Medicine | DX: S39.012A Strain of muscle, fascia and tendon of lower back, initial encounter (principal); W17.89XA Other fall from one level to another, initial encounter; M53.3 Sacrococcygeal disorders, not elsewhere classified | CPT/HCPCS: 99213 ==

== ENCOUNTER → 2024-06-15 10:30 | Outpatient (BNVA) | payer OTHER, SELFPAY | PROVIDERS: PCP Internal Medicine; Visit Provider Internal Medicine | DX: S39.012D Strain of muscle, fascia and tendon of lower back, subsequent encounter (principal); W17.89XD Other fall from one level to another, subsequent encounter | CPT/HCPCS: 99213 ==

== ENCOUNTER → 2024-06-29 10:40 | Outpatient (BNVA) | payer OTHER, SELFPAY | PROVIDERS: PCP Internal Medicine; Visit Provider Internal Medicine | DX: S39.012D Strain of muscle, fascia and tendon of lower back, subsequent encounter (principal); W17.89XD Other fall from one level to another, subsequent encounter | CPT/HCPCS: 99213 ==

== ENCOUNTER 2024-07-07 16:21 | Outpatient (RCR) | payer OTHER, SELFPAY ==
--- NOTE | 2024-06-21 17:35 | MHC.PT.EP ---
[facility] [place] Office [place] Office [place] Office [address] Rusty Garcia [address] [phone] F: [phone] F: [phone] F: [phone] F: [phone] Physical Therapy Plan of Care Date of Evaluation: 06/20/24 Date of Surgery: Diagnosis: low back and SI strain Assessment: Pt is a pleasant and motivated 53yo F who presents to PT with L low back pain since May 10. Her pain is located to left low back and occasionally radiates into L glutes and L groin. She presents to PT with current impairments in pain, decreased lumbar ROM, decreased hip ROM, decreased core stabilization, decreased muscle length, and decreased hip/glute strength. She is limited functionally by vacuuming, prolonged walking, and LE ADLs. She is a good candidate for skilled PT in order to address current impairments to facilitate return to PLOF. 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 Manual therapy to restore motion and function. Therapeutic exercise to improve strength and flexibility. Neuromuscular re-education for posture and balance. Therapeutic activities to return to functional activities of daily living. Electronically signed by: Gabbi Fernadnez, PT, DPT Please sign and return to therapist. Thank you for your referral.
--- NOTE | 2024-08-08 10:45 | MHC.PT.DC ---
[facility] [place] Office [place] Office [place] Office [address] Rusty Garcia [address] [phone] F: [phone] F: [phone] F: [phone] F: [phone] Physical Therapy Discharge Report Diagnosis: low back and SI strain Date of Surgery: Date of Evaluation: 06/20/24 Date of Discharge: 08/08/24 Treatments to Date: 5 Cancellations to Date: 2 No Shows to Date: 1 Discharge Status: Visit Non-compliance Discharge Summary: Pt was seen for skilled PT from 06/20/24-07/07/24. Her last attended appointment was 07/07/24. She missed her last 3 scheduled PT appointments (2 cancellations and 1 no show appointment). She is being D/C from skilled PT as she has not attended or called to reschedule in > 30 days. Pt current level of function unknown at this time Electronically signed by: Gabbi Fernandez, PT, DPT Please sign and return to therapist. Thank you for your referral.
== END 2024-08-08 10:45 | disposition home or self-care (01) ==
LOC: HO.PT 16:21
PROVIDERS: PCP Internal Medicine; Visit Provider Internal Medicine
DX: S39.012D Strain of muscle, fascia and tendon of lower back, subsequent encounter (principal)
CPT/HCPCS: 97110; 97140; 97161; 97530

== ENCOUNTER → 2024-07-15 11:18 | Outpatient (BNVA) | payer OTHER, SELFPAY | PROVIDERS: PCP Internal Medicine; Visit Provider Internal Medicine | DX: S39.012D Strain of muscle, fascia and tendon of lower back, subsequent encounter (principal); W17.89XD Other fall from one level to another, subsequent encounter | CPT/HCPCS: 99213 ==

== ENCOUNTER → 2024-08-05 11:20 | Outpatient (BNVA) | payer OTHER, SELFPAY | PROVIDERS: PCP Internal Medicine; Visit Provider Internal Medicine | DX: M54.50 Low back pain, unspecified (principal); Z02.79 Encounter for issue of other medical certificate | CPT/HCPCS: 99213 ==

== ENCOUNTER 2024-10-17 17:28 | Outpatient (AMB) | payer OTHER, SELFPAY ==
[2024-10-17 17:34] VITALS: BP 128/78; PULSE 78; O2SAT 98; BMI 38.4
--- NOTE | 2024-10-17 17:34 | MHC.PC.OV ---
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: No Accompanied by: Self / Same As Patient Allergies doxycycline (DOXYCYCLINE) Allergy (Intermediate, Verified 10/17/24 17:43) NAUSEA/VOMITING/ITCHING sertraline Adverse Reaction (Intermediate, Verified 10/17/24 17:43) Constipation Medication List - Last Reconciled 10/17/24 by Laila Aponte MD atorvastatin 20 mg PO BEDTIME 90 days cholecalciferol (vitamin D3) (Vitamin D3) 50 mcg PO DAILY citalopram 10 mg PO DAILY 30 days fenofibrate 54 mg PO DAILY 90 days levonorgestrel (Mirena) 52 mcg intrauterine USEASDIRECTD pantoprazole 40 mg (2 x 20 mg) PO DAILY Tobacco use date assessed: 10/17/24 Dental Screening Dental Screen Date: 10/17/24 Did you have a dental visit in the last 12 months?: No Did you have a dental problem in the last 6 months where you did not have access to dental care?: No Was dental information given to patient?: Patient has dentist HPI HPI Comments History of Present Illness Details The patient is a 53-year-old female presenting for a physical exam and preventative care. She has a history of moderate recurrent major depression, currently managed with citalopram, and her PHQ-9 score is 14, indicating moderate depression. The patient is aware of her condition and is under treatment. The patient is classified as having class 2 obesity with a BMI of 38.4. She is being considered for a short-term course of phentermine, with awareness of potential side effects such as elevated blood pressure, stroke, and insomnia. She reports sleeping 12 to 13 hours a day, which may be contributing to her insomnia diagnosis. Preventative care measures include a referral for a colonoscopy and an order for a mammogram, as her last mammogram was in 2023. Additionally, she will receive a Tdap vaccination during this visit. - Colonoscopy referral for colorectal cancer screening - Mammogram order for breast cancer screening - Tdap vaccination for tetanus, diphtheria, and pertussis prevention [facility] Medical History (Updated 10/17/24 @ 18:06 by Laila Aponte MD) JEYSON (obstructive sleep apnea) Mixed hyperlipidemia Acid reflux Elevated white blood cell count Nicotine dependence, cigarettes, uncomplicated Mild major depression KAYLA (generalized anxiety disorder) Vitamin D deficiency Obesity (BMI 30-39.9) Shoulder pain, left Surgical History History of neck surgery History of section IUD (intrauterine device) in place Family History Father EtOH dependence Cirrhosis Hypertension Substance use disorder Mother CKD (chronic kidney disease) Diabetes Hypertension Son In good health Brother Mantle cell lymphoma, Onset Age: 54 Social History Household Members: Significant Other Housing: House Alcohol intake: current Alcohol intake frequency: holidays/special occasions only Alcohol type: beer, wine and hard liquor Patient Tobacco Use Status: Current everyday Tobacco user Tobacco use type: Cigarette Cigarette Packs Per Day: 0.5 Cigarettes Per Day: 10 Years Smoked: (onset 16yo, 1/2-3/4ppd x 37yrs, 20+PYH) e-Cigarette/Vaping Use: Never Used Second Hand Smoke Exposure: No service: No Current occupational status: employed Current occupational exposures/hazards: No Sexual orientation: Straight/Heterosexual Gender identity: Female Cognitive needs: No Hearing needs: No Vision needs: No Female Reproductive History Menstrual Age of Menarche: 16 Questionnaire PHQ-9 Over the last 2 weeks, how often have you been bothered by any of the following problems? 1. Little interest or pleasure in doing things: more than half the days 2. Feeling down, depressed, or hopeless: several days 3. Trouble falling or staying asleep, or sleeping too much: nearly every day 4. Feeling tired or having little energy: nearly every day 5. Poor appetite or overeating: nearly every day 6. Feeling bad about yourself - or that you are a failure or have let yourself or your family down: several days 7. Trouble concentrating on things, such as reading the newspaper or watching television: several days 8. Moving or speaking so slowly that other people could have noticed. Or the opposite - being so fidgety or restless that you have been moving around a lot more than usual: not at all 9. Thoughts that you would be better off or of hurting yourself in some way: not at all Total score: 14 Depression Screening Interpretation: Positive (no suicidal thoughts) Depression Screening Follow-up: Existing condition and Follow-up Visit Requested Depression Screening Done: Yes 78908 - PHQ-9 Billing: Yes Source: Developed by Drs. Jacky Melgoza, Rachel Guardado, Gabriel Rossi and colleagues, with an educational margarita from [employer]. Thrive Questionnaire Date Thrive assessed: 10/17/24 I am a: Patient What is your living situation today?: I have a steady place to live Within the past 12 months, did the food you bought not last and you didn't have the money to get more?: Never true Within the past 12 months, did you worry whether your food would run out before you got money to buy more?: Never true Do you have trouble paying for medicines?: No Do you have trouble getting transportation to medical appointments?: No Do you have trouble paying your heating and electricity bill?: No Do you have trouble taking care of your child, family member or friend?: No Do you have trouble with day-to-day activities such as bathing, preparing meals, shopping, managing finances, etc.?: No Are you currently unemployed and looking for a job?: No Are you interested in more education?: No Please select the resources that you would like help with: None Currently or been in a relationship where the following occur: No concerns reported THRIVE Score: 0 AUDIT C Alcohol Use Questionnaire (AUDIT-C) 1. How often do you have a drink containing alcohol?: Monthly or less 2. How many drinks containing alcohol do you have on a typical day when you are drinking?: 3 or 4 3. How often do you have six or more drinks on one occasion?: Never Total Score: 2 Score Reviewed/Action Taken: No KAYLA-7 AMB Questionnaire KAYLA-7 Date KAYLA - 7 assessed: 10/17/24 Feeling nervous, anxious, or on edge: 3 = Nearly every day Not being able to stop or control worryin = Several days Worrying too much about different things: 1 = Several days Trouble relaxin = Several days Being so restless that it is hard to sit still: 0 = Not at all Becoming easily annoyed or irritable: 1 = Several days Feeling afraid as if something awful might happen: 1 = Several days Total KAYLA-7 score (0-4 normal; 5-9 mild; 10-14 moderate; 15-21 severe): 8 Source: Developed by Drs. Jacky Melgoza, Rachel Guardado, Gabriel Rossi and colleagues, with an educational margarita from [employer]. KAYLA-7 Assessment Billing KAYLA-7 Assessment Tool: KAYLA-7 Assessment 87201 Review of Systems Const All systems reviewed & are unremarkable except as noted in HPI and below Card Denies chest pain at rest, Denies chest pain with activity, Denies edema, Denies irregular heart rhythm, Denies claudication, Denies dyspnea, Denies dyspnea on exertion, Denies orthopnea, Denies paroxysmal nocturnal dyspnea and Denies slow heart rate Resp Denies cough, Denies dyspnea and Denies dyspnea on exertion GI Denies abdominal pain, Denies change in bowel habits, Denies excessive flatus, Denies nausea and Denies vomiting Skin/Breast Denies bleeding lesions, Denies changing lesions and Denies rash Physical exam (Primary Care) Vital Signs: Last Vital Signs Pulse 78 10/17/24 17:34 BP 128/78 10/17/24 17:34 Pulse Ox 98 10/17/24 17:34 Oxygen Delivery Method Room Air 10/17/24 17:34 BMI result Body Mass Index 38.4 BMI Assessment/Plan discussion: High BMI High, discussed plan: lifestyle, weight reduction, dietary and physical activity Tobacco/Smoking Status: Tobacco use Status Tobacco use date assessed 10/17/24 10/17/24 17:37 Patient Tobacco Use Status Current everyday Tobacco 10/17/24 17:37 Tobacco use type Cigarette 10/17/24 17:37 e-Cigarette/Vaping Use Never Used 10/17/24 17:37 Are you ready to quit: No Tobacco cessation counseling provided: No PHQ-9: PHQ-9 Score PHQ-9: Total score 14 10/17/24 17:46 Depression Screening Interpretation: Positive (no suicidal thoughts) Depression Screening Follow-up: Existing condition and Follow-up Visit Requested Thrive Assessment: Date of Thrive Assessment Date Thrive assessed 10/17/24 10/17/24 17:37 Currently or been in a relationship where the following occur: No concerns reported [facility] Head: Yes normal to inspection, Yes normocephalic and Yes atraumatic Ears: external ears normal Eyes General: appearance normal, both eyes and all related structures Eyelids: Yes eyelids normal Conjunctivae: conjunctivae normal Neck Neck: Yes normal visual inspection and Yes supple Resp Effort & Inspection: normal respiratory effort Auscultation: clear to auscultation bilaterally Cardio Jugular venous distension: no JVD Rate: regular rate Rhythm: regular rhythm Heart sounds: S1 normal heart sound present and S2 normal heart sound present GI Inspection: Yes normal to inspection Palpation (GI): Soft to palpation and nontender Auscultation: normal bowel sounds Skin General skin exam: no rashes or lesions noted Neuro General: no focal motor deficits Extrem General: Yes full ROM Psych Appearance: grossly normal Immunizations Boostrix Tdap 2.5 Lf unit-8 mcg-5 Lf/0.5 mL intramuscular syringe Performing Provider: Laila Aponte MD [facility] Administered by: Flaca Rubin CMA on 10/17/24 18:02 Dose Route Admin Location Dispensed Lot Number Expiration Date NDC Land Manager 0.5 mL IM Left Deltoid 0.5 mL [id number] 12/13/26 06923-506-00 [place] Total Dispensed Waste 0.5 mL 0 % VIS Given Date VIS Provided VIS Publication Date 10/17/24 Single Vaccine 20 Eligibility Eligibility Date Funding Source Not [facility] Eligible 10/17/24 Private Coding Level of Care Code Est Pt Level 3 (58489) Est Pt Prev Care 18-39y(07862) Diagnoses Physical exam Z00.00 Moderate recurrent major depression F33.1 COPD (chronic obstructive pulmonary disease) J44.9 Chronic fatigue R53.82 Class 2 obesity with body mass index (BMI) of 38.0 to 38.9 in adult E66.812; Z68.38 Additional Codes KAYLA-7 Assessment Billing - KAYLA-7 Assessment Tool: KAYLA-7 Assessment 81853 ([id number]) PHQ-9 - 86209 - PHQ-9 Billing: Yes ([id number]) Time Spent (min) 35 Assessment & Plan Assessment & Plan (1) Physical exam: Code(s): Z00.00 - Encounter for general adult medical examination without abnormal findings Category: Medical (2) Moderate recurrent major depression: Code(s): F33.1 - Major depressive disorder, recurrent, moderate Category: Medical (3) COPD (chronic obstructive pulmonary disease): Code(s): J44.9 - Chronic obstructive pulmonary disease, unspecified Category: Medical (4) Chronic fatigue: Code(s): R53.82 - Chronic fatigue, unspecified Category: Medical (5) Class 2 obesity with body mass index (BMI) of 38.0 to 38.9 in adult: Code(s): E66.812 - Obesity, class 2; Z68.38 - Body mass index [BMI] 38.0-38.9, adult Category: Medical Plan Plan Patient was informed and verbally consented to the use of an ambient scribe for clinic note documentation during this visit. 1. Encounter for general adult medical examination without abnormal findings Z00.00 A referral for a colonoscopy has been made as part of colorectal cancer screening. Tdap vaccine done today. 2. Major depressive disorder, recurrent, moderate F33.1 HCC 59 The patient is currently managed with citalopram for moderate recurrent major depression, with a PHQ-9 score of 14 indicating moderate depression. 3. Obesity, class 2 E66.812 The patient is classified as having class 2 obesity with a BMI of 38.4. A short-term course of phentermine is planned, with the patient being informed of potential side effects such as elevated blood pressure, stroke, and insomnia. Orders: Orders MM tomosynthesis screening BI Today Z12.31 - Encounter for screening mammogram for malignant neoplasm of breast TDaP Immunization Today Z23 - Encounter for immunization Thyroid Stimulating Hormone Today R53.82 - Chronic fatigue, unspecified Lipid Panel Today E78.5 - Hyperlipidemia, unspecified Vitamin D 25-OH Total Today E55.9 - Vitamin D deficiency, unspecified Vitamin B12 and Folate Today E53.8 - Deficiency of other specified B group vitamins, R53.82 - Chronic fatigue, unspecified Comprehensive Bazine. Panel Fast Today R53.82 - Chronic fatigue, unspecified Medications: New phentermine must administer 30 minutes before or 1-2 hours after breakfast 37.5 mg PO DAILY 30 tabs 0RF 30 days
--- OUTSIDE RECORDS SUMMARY | 2024-10-17 18:55 | XMS_ITS | Clinical Summary ---
Author Organization [facility] Address [address] [facility] [address] [place] [phone] Phone Care Team Providers Care Cma Or Lpn Name Role Phone Laila Bolanos MD Primary Care Provid er Allergies No known active allergies Medications citalopram (CELEXA) 40 MG tablet Take 40 mg by mouth daily. Active atorvastatin (LIPITOR) 20 MG tablet Take 20 mg by mouth daily. Active COLLAGEN MISC by Miscellaneous route. Active multivitamin with minerals (HAIR,SKIN AND NAILS ORAL) Take by mouth. Act neli Active Problems Problem Noted Date Diagnosed Date S/P cervical discectomy 11/29/2020 Obesity (BMI 35.0-39.9 without comorbidity) 11/10 Weakness generalized 11/29/2020 Social History Tobacco Use Types Packs/Day Years Used Date Smoking Tobacco: Every Day Cigarettes 0.5 32 Smokeless Tobacco: Never Tobacco Cessation:Ready to Q uit: Yes Alcohol Use Standard Drinks/Week Comments Yes 0 (1 standard drink = 0.6 oz pur e alcohol) social drinker Education Answer Date Recorded Are you interested in more education? Not on hailey e 06/07/2022 Are you concerned about learning? Not on file 06/07/2022 No 06/07/2022 No 06/07/2022 Digital Access Answer Date Recorded No 07/06/2022 No 07/06/2022 No 07/06/2022 Reliable internet access at home? Not on file 07/06/2022 Device with a working camera? Not on file Comments Unknown Sex and Gender Information Value Date Recorded Sex Assigned at Not on file Legal Sex Female 2:46 PM EDT Gender Identity Not on file Sexual Orientation Not on file Last Filed Vital Signs Vital Sign Reading Time Taken Comments Blood Pressure - - Pulse - - Temperature - - Respiratory Rate - - Oxygen Saturation - - Inhaled Oxygen Concentration - - Weight 95.3 kg (210 lb) 02/27/2021 9:44 AM EST Height 161.5 cm (5' 3.58 ) 02/27/2021 9:44 AM ES T Body Mass Index 36.52 02/27/2021 9:44 AM EST Plan of Treatment Health Maintenance Due Date Last Done Comments Adult Td,Tdap Booster 1972 LIPID PANEL 1972 DEPRESSION SCREENING 1984 SMOKING Hx and SMOKELESS TOBACCO SCREENING 1985 HEPATITIS C SCREENING 1990 HIV ONE-TIME SCREENING (18-6 5 YEARS) 1990 PNEUMOCOCCAL VACCINES (50+ years) (1 of 2 - PCV) 11/08/1991 PAP SMEAR 1993 MAMMOGRAM 2012 COLOGUARD 2017 COLONOSCOPY 2017 COLORECTAL CANCER SCREENING 2017 FIT TEST 2017 FOBT 2017 SIGMOIDOSCOPY 2017 VIRTUAL COLONOSCOPY 2017 ZOSTER VACCINES (1 of 2) 2022 INFLUENZA VACCINE (#1) 2024 , 11/24/2019, 11/09/2017 COVID-19 VACCINE (4 - 2024-2 6 season) 2024 01/01/2021, 03/20/2020, 02/28/2020 HEPATITIS A VACCINES Aged Out No long er eligible based on patient's age to complete this topic HIB VACCINES Aged Out No longer eligi ble based on patient's age to complete this topic MENINGOCOCCAL VACCINES (ACWY) Aged Out No longer eligible based on patient's age to complete this topic MENINGOCOCCAL VACCINES (B) Aged Out N o longer eligible based on patient's age to complete this topic Medical Devices Not on file Insurance [facility] [place] [id number] [place] [id number] [place] [id number] Care Teams Cma Or Lpn Relationship Specialty Start Date End Date Laila Bolanos MD [address] [place] [address] PCP - General Internal Medicine 08/20/20 Additional Source Comments The information contained in this document represents components of the legal health record. It is not the complete legal health record.[facility]
== END 2024-10-17 18:07 | disposition home or self-care (01) ==
LOC: HO.HMCH 17:29
PROVIDERS: PCP Internal Medicine; Visit Provider Internal Medicine
DX: Z00.00 Encounter for general adult medical examination without abnormal findings (principal); J44.9 Chronic obstructive pulmonary disease, unspecified; F33.1 Major depressive disorder, recurrent, moderate; E66.812 Obesity, class 2; Z68.38 Body mass index [BMI] 38.0-38.9, adult; R53.82 Chronic fatigue, unspecified; Z23 Encounter for immunization

== ENCOUNTER → 2024-10-17 17:28 | Outpatient (BNVA) | payer OTHER, SELFPAY | PROVIDERS: PCP Internal Medicine; Visit Provider Internal Medicine | DX: Z00.00 Encounter for general adult medical examination without abnormal findings (principal); F33.1 Major depressive disorder, recurrent, moderate; J44.9 Chronic obstructive pulmonary disease, unspecified; E66.812 Obesity, class 2; Z68.38 Body mass index [BMI] 38.0-38.9, adult | CPT/HCPCS: 90471; 90715; 96127 ==

== ENCOUNTER → 2024-12-20 15:45 | Outpatient (BNV) | payer OTHER, SELFPAY | PROVIDERS: Visit Provider Internal Medicine | DX: Z12.31 Encounter for screening mammogram for malignant neoplasm of breast (principal) | CPT/HCPCS: 77063; 77067 ==

== ENCOUNTER 2024-12-20 15:46 | Outpatient (REF) | payer OTHER, SELFPAY ==
--- OUTSIDE RECORDS SUMMARY | 2024-12-20 17:13 | XMS_ITS | Data Portability ---
Author Organization [facility] [address] Address [address] [place] [address] Assessment No assessment recorded. Plan of Treatment Reminders Order Date Submit Date Provider Last Modified By Organization Details Last Modified Time Details Appointments None recorded. Lab None recorded. Referral None recorded. Procedures None recorded. Surgeries None recorded. Imaging None recorded. Medication Orders cyclobenzap rine 10 mg tablet 2023 [id number], [address] [place], [address], 17:51:07 diclofenac sodium 75 mg tablet,soledad yed release 2023 024 [id number], [address] [place], [address], 4 17:51:08 Medrol (Jamison) 4 mg tablets in a dose pack 2023 0[id number] [address] [place] [address], [address], 4 19:32:45 Patient TargetsNo targets recorded. Patient Instructions Encounter Date Encounter Id Patient Instructions Last Modified By Organization Details Last Modified Time 06/24/2023 [id number] Start with the Medrol pack as directed. Use the diclofenac as directed as needed after you finish the Medrol pack. Do not take at the same time. [email or web address] Not available 06/24/2023 19:32:37 Reason for Referral None Reported. Problems Name Problem SNOMED Code Status Onset Date Resolution Date Notes Provider Name and Address Organization Details Recorded Time Anxiety 20590800 Active Julianne chau PA [facility] 4 17:10:25 Hypercholestero lemia 85329150 Active 2023 HARVE[facility] Vidal [facility] 4 17:10:01 Problem Notes None recorded. Medical Equipment None [...] Available No t Available Vitals Date Recorded Oxygen saturation Oxygen saturation in Arterial blood by Pulse oximetry Heart rate Respiratory rate Body temperature Systolic And Diastolic Provider Name and Address Organization Details Last Updated DateTime 4 97 % 97 % 80 /min 19 /min 98.9 [degF] 116/77 mm[Hg] Corrie GABRIEL - [facility] 4 17:27:07 Date Recorded Body height Body mass index (BMI) Body weight Provider Name and Address Organization Details Last Updated DateTime 06/24/2023 160.02 cm 38.1 kg/m2 55735.36 g Julianne Billy PA - [facility] 06/24/2023 17:08:20 Social History Question Answer Notes LastModified by [employer] Details LastModified Time Tobacco Smoking Status Never Smoker HARVEY Hernandez - [facility] 06/24/2023 17:10:44 Have You Had A Flu Shot This Season? Yes Information not available 06/24/2023 Have You Had Direct Contact, Or Contact During Intimacy, With Monkeypox Rash, Scabs, Or Body Fluids From A Person With Monkeypox? No Information not available 06/24/2023 What Was The Date Of Your Most Recent Tobacco Screening? 06/24/2023 Information not available 06/24/2023 Have You Recently Traveled Abroad? No Information not available 06/24/2023 Sex: Unknown Functional Status Question Answer Note LastModified by [employer] Details LastModified Time Do you use any illicit or recreational drugs? No Information not available 06/24/2023 Do you or have you ever used any other forms of tobacco or nicotine? Yes Information not available 06/24/2023 What is your level of alcohol consumption? None Information not available 06/24/2023 Mental Status None recorded. Family History Relationship [...] Diagnosis SNOMED-CT Code Diagnosis ICD10 Code Diagnosis IMO Codes Diagnosis Note [id number] [facility] [address] [address] 09/04/2019 18:45:12 09/04/2019 19:04:41 [id number] [facility] [address] [address] 03/19/2019 16:29:14 03/19/2019 17:41:36 [id number] [facility] [address] [place] [address] 11/19/2017 12:49:01 11/19/2017 13:37:51 [id number] [facility] [place] [phone] 04/19/2017 17:15:05 04/19/2017 18:44:16 [id number] YOSELIN HERNANDEZ MD [address] [place] [phone] 06/24/2023 16:54:49 06/24/2023 17:52:11 Muscle spasm of thoracic back [id number] 12878 M62.830 MUSCU LOSKELETAL PAIN can be managed quite effectivel y with over the counter medication s and home treatments . When suffering from sprains, strains, contusions and other types of very painful but non-danger ous musculoske letal pain try the followin . ACETAMINOP HEN 1,000 mg or 6 hours is needed for pain. 2 . HEAT as needed for pain. Only use heat for about 20 minutes at a time to prevent skin damage. You may switch from one to the other if it helps. Repeat frequently throughout the day as needed. Please do not fall asleep while using heat as severe hatfield can result. 3 . Topical medication such asStop Pain or BioFreezef eels good to rub on painful areas. Do not apply over broken skin. 4 . Many musculoske letal injuries can benefit from gentle stretching or strengthen ing exercises. 5. Wear a back support brace while working to take the strain of of you back. * If pain does not improve please see your [...] Recorded Advance Directives Directive None Recorded Payers Insurance Date Sequence Insurance Name Policy Number Policy Pritchett Covered Member ID Pritchett Member ID Guarantor Name 06/24/2023 1 [facility] [id number] Cara L Jose Rafael [id number] Cara Mantilla Notes Date Note Type Note Provider Name and Address Organization Details Recorded Time 06/24/2023 text/html 52 yo female with 6 day hx of left side chest/rib pain. It was initially intermittent then became worse. No hx of trauma, recent infection, or insect bites. YOSELIN HERNANDEZ MD [address] [place], [address], [place] - [facility] 06/24/2023 19:32:56 OBGyn Episode No OBEpisode recorded.
--- OUTSIDE RECORDS SUMMARY | 2024-12-20 17:13 | XMS_ITS | Clinical Summary ---
Author Organization [facility] Address [address] [facility] [address] [place] [phone] Phone Care Team Providers Care Production Clerk Name Role Phone Laila Bolanos MD Primary [...] 2024-2 6 season) 2024 01/01/2021, 03/20/2020, 02/28/2020 RSV VACCINE (1 - 1-dose 75+ series) 11/08/2047 HEPATITIS A VACCINES Aged Out No long er eligible based on patient's age to complete this topic HIB VACCINES Aged Out No longer eligi ble based on patient's age to complete this topic IPV VACCINES Aged Out No longer eligi ble based on patient's age to complete this topic MENINGOCOCCAL VACCINES (ACWY) Aged Out No longer eligible based on patient's age to complete this topic MENINGOCOCCAL VACCINES (B) Aged Out N o longer eligible based on patient's age to complete this topic Medical Devices Not on file Insurance [facility] Care Teams Production Clerk Relationship Specialty Start Date End Date Laila Bolanos MD [address] [place] [address] PCP - General Internal Medicine 08/20/20 Additional Source Comments The information contained in this document represents components of the legal health record. It is not the complete legal health record.[facility]
== END 2024-12-20 15:47 | disposition home or self-care (01) ==
LOC: HO.MAMMO 15:46
PROVIDERS: Visit Provider Internal Medicine
DX: Z12.31 Encounter for screening mammogram for malignant neoplasm of breast (principal)
CPT/HCPCS: 77063; 77067